=== PATIENT | male | born 1975 | race African-American/Black ===

== ENCOUNTER 2025-03-24 11:38 | Outpatient (CLI) | payer OTHER, SELFPAY ==
--- OUTSIDE RECORDS SUMMARY | 2024-05-06 10:57 | XMS_ITS | Encounter Summary ---
Author Name [facility] [place] Organization [facility] [place] Address [address] [place] [address] Care Team Providers Care Newspaper Inserter Name Role Phone MICKY TRUONG Primary Care Provider Unavailabl e Selected Encounter This section includes the information on record at [place] for the Encounter. Date/Time Encounter Type Encounter Description Reason Pro vider Source May 06, 2024 02:57 PM Outpatient Encounter ADMIN PAT ACTIVTIES (MASNONCT) IHE Encounter Template Text not used by [place] Plan of Treatment: Future Appointments (+ 6 months) and Future Tests (+/- 45 days) The Plan of Treatment section includes future care activities for the patient from all [place] treatmentfacilities. This section includes future appointments and future orders which are active, pending or scheduled. Future Appointments This section includes appointments that were scheduled to occur 6 months from the date of the Encounter, up to a maximum of 20 appointments. The data comes from all [place] treatment facilities. Appointment Date/Time Appointment Type Appointme nt Facility Name Jun 01, 2024 07:30 AM AM[facility]ULATORY - NONE [place] [facility] Jul 06, 2024 12:30 PM AMBULATORY - PSYCHIATRY [facility] Jul 16, 2024 02:00 PM [facility]ATORY - NONE [place] [facility] Jul 28, 2024 03:00 PM [facility]ORY - NONE [place] [facility] Lab Results: +/- 30 days of the encounter This section includes the Chemistry and Hematology Lab Results on record with [place] for the patient. Radiology Reports and Pathology Reports are provided separately, in subsequent sections. Lab Results This section contains the Chemistry/Hematology Results that were resulted 30 days before or 30 daysafter the date of the Encounter. Date/Time Source Result Type Result - Unit Interpretation Reference Range Specimen Type Comment Jun 01, 2024 07:29 AM [facility] EGFR + CREAT DATE SENSITIVE PLASMA Specime n Type: PLASMA Comment: Estimated Glomerular Filtration Rate (eGFR) calculated using the 2020 Chronic Kidney Disease-Epidemiol ogy (CKD-EPI) Collaboration creatinine equation; units of measure are mL/min/1.73 m2. Results are only valid for adults (>=18 years) whose serum creatinine is in a steady state. eGFR calculations are not valid for patients with acute kidney injury and for patients on dialysis. Creatinine-based estimates of kidney function may also be inaccurate in patients with reduced creatinine generation due to decreased muscle mass (e.g., malnutrition, severe hypoalbuminemia, sarcopenia, chronic neuromuscular disease, amputations, severe heart failure or liver disease) and in patients with increased creatinine generation due to increased muscle mass (e.g., muscle builders, anabolic steroids) or increased dietary intake. As drug clearance is proportional to total GFR and not GFR indexed to body surface area (BSA), in individuals with a BSA substantially different than 1.73 m2, drug dosing should be based on the reported eGFR value de-indexed from BSA by multiplying by the individual's BSA and dividing by 1.73. CKD is diagnosed based on abnormalities of kidney structure or function, present for >3 months, with implications for health and disease. CKD is classified and staged based on cause, eGFR and albuminuria (quantified as urine albumin to creatinine ratio). An eGFR >60 mL/min/1.73 m2 in the absence of increased urine albumin excretion or structural abnormalities does not represent CKD. === eGFR CKD Interpretation (mL/min/1.73 m2) stage >=90 G1 Normal 60-89 G2 Mild decrease 45-59 G3A Mild to moderate decrease 30-44 G3B Moderate to severe decrease 15-29 G4 Severe decrease <15 G5 Kidney failure Ordering Provider: NELDA LANIER Report Released Date/Time: Mar 03, 2024 09:58 PM Reporting Lab: [facility] [address] [facility] [id number] Performing Lab: [facility] [address] [facility] [id number] CREATININE 1.36 mg/dL H 0.72-1.25 eGFR (CKD-EPI) 65 Social History: Smoking Status (Most current) and Tobacco Use (All prior to encounter date) This section includes the most current, and the historical, smoking and tobacco- related health factors from the [place] facility where the Encounter took place. Current Smoking Status This section includes the most current smoking, or tobacco-related health factor, from the [place] facility where the Encounter took place. Date/Time Current Smoking Status Comment Facil ity Apr 23, 2004 02:11 PM HF V9 CURRENT NON-SMOKER quit x 1 year [facility] Radiology Reports: +/- 30 days of the encounter Radiology Reports For cases when an order for radiology services may have been completed prior to the date of the Encounter, the report list includes the Radiology Reports that were completed up to 30 days before dateof the Encounter. For cases when an order for radiology services may have been completed after the date of the Encounter, the report list also includes the Radiology Reports that were completed up to30 days after date of the Encounter. The data comes from all [place] treatment facilities. Date/Time Radiology Report Provider Source Jun 01, 2024 07:[address] ABD W & W/O CON T LIVER PROTOCOL: AVINASH HICKMAN [id number] -[id number] [facility] Date: JUN 01, 2024@07:26 Req Phys: NELDA LANIER Pat Loc: LYN PACT GRIMALDO 16-1 (Req'g Loc) Img Loc: CT SCAN Service: Unknown [place] [id number] (Case [id number] COMPLETE) CT ABD W & W/O CONT LIVER PROTOCO(CT Detailed) CPT:44475 Contrast Media : Non-ionic Iodinated Reason for Study: SEE CLINICAL HISTORY Pharmaceutical: IOHEXOL INJ 350MG I/ML 500ML BOTTLE, 80 ml Clinical History: 1. Liver mass by US HISTORY/REASON FOR EXAM: f/u of liver lesion noted on U/s Report Status: Verified Date Reported: JUN 01, 2024 Date Verified: JUN 01, 2024 Darkroom Technician E-Sig: Report: CT ABD W & W/O CONT LIVER PROTOCOL HISTORY: SEE CLINICAL HISTORY COMPARISON: None available TECHNIQUE: CT of the abdomen with multiplanar reformats was performed at the local [place] facility. 120 images were received by the [place] National Teleradiology Program (NTP) for interpretation. RADIATION DOSE (mGy*cm): 1996.1 IV CONTRAST: Omnipaque 350, 100 mL FINDINGS: Lower Chest: Clear lung bases. Liver: There is a 2.3 cm arterial enhancing lesion within the posterior right hepatic lobe (series 301, image 28) that is isodense to the blood pool on the subsequent phases of enhancement. Other similar enhancing lesions are seen in the liver, including a 1.7 cm lesion in the right hepatic dome (series 301, image 16). Gallbladder/Biliary Tract: Normal. Distal Esophagus, Stomach and Duodenum: Normal CT appearance. Spleen: Normal. Pancreas: Normal. Adrenal Glands: Normal. Kidneys: Normal in size. No hydronephrosis or nephrolithiasis. Visualized Bowel: No evidence of bowel obstruction or inflammation. Peritoneum/Retroperitoneum: No ascites, fluid collection or pneumoperitoneum. Vessels: No significant atherosclerotic calcification. Lymph Nodes: Normal in size. Abdominal Wall: Normal. Bones: Unremarkable. Impression: Multiple liver hemangiomas, with the largest measuring up to 2.3 cm. READING PHYSICIAN: Javier Mcdonough -[phone] 06/01/2024 6:09 PDT [facility] National Teleradiology Program [phone] (For Medical Practitioner Use Only) Attention Patients / Veterans: If you have questions or concerns about these test results, please contact your ordering provider or primary care team. Primary Diagnostic Code: NO ALERT REQUIRED Primary Interpreting Staff: OUTSIDE SERVICE RADIOLOGY, Staff Physician / RADIOLOGY,OUTSIDE SERVICE [facility] Encounter Notes: All associated encounter notes This section contains the clinical notes associated to the Encounter. Date/Time Encounter Note(s) Provider Source May 06, 2024 02:57 PM ADMINISTRATIVE NOT E: LOCAL TITLE: CLERICAL/ADMIN NOTE STANDARD TITLE: ADMINISTRATIVE NOTE DATE OF NOTE: MAY 06, 2024@14:57 ENTRY DATE: MAY 06, 2024@14:57:23 AUTHOR: ZEINA OAKES COSIGNER: URGENCY: STATUS: COMPLETED sched ct abd w/ w/o cont 0801 dd pt pid 1015 X-ray/Ct2/Nc 06/01/2024@07:30 Non-count /es/ RACHEL OAKES ADVANCED MSA Signed: 05/06/2024 14:59 RACHEL OAKES [facility]
--- OUTSIDE RECORDS SUMMARY | 2024-06-25 07:50 | XMS_ITS | Encounter Summary ---
Author Name [facility] [place] Organization [facility] [place] [place] Address [address] [place] [address] Care Team Providers Care Hospital Mortician Name Role Phone MICKY TRUONG Primary Care Provider Unavailabl e Selected Encounter This section includes the information on record at [place] for the Encounter. Date/Time Encounter Type Encounter Description Reason Pro vider Source Jun 25, 2024 11:50 AM Outpatient Encounter ADMIN PAT ACTIVTIES (MASNONCT) IHE Encounter Template Text not used by [place] Plan of Treatment: Future Appointments (+ 6 months) and Future Tests (+/- 45 days) The Plan of Treatment section includes future care activities for the patient from all [place] treatmentfacilities. This section includes future appointments and future orders which are active, pending or scheduled. Future Appointments This section includes appointments that were scheduled to occur 6 months from the date of the Encounter, up to a maximum of 20 appointments. The data comes from all [place] treatment facilities. Appointment Date/Time Appointment Type Appointme nt Facility Name Jul 06, 2024 12:30 PM AMBULATORY - PS[facility]CHIATRY [facility] Jul 16, 2024 02:00 PM [facility] - NONE [place] [facility] Jul 28, 2024 03:00 PM AMBULATORY - NONE [facility] Lab Results: +/- 30 days of the encounter This section includes the Chemistry and Hematology Lab Results on record with [place] for the patient. Radiology Reports and Pathology Reports are provided separately, in subsequent sections. Lab Results This section contains the Chemistry/Hematology Results that were resulted 30 days before or 30 daysafter the date of the Encounter. Date/Time Source Result Type Result - Unit Interpretation Reference Range Specimen Type Comment Jun 01, 2024 07:29 AM [facility] [place] [facility] EGFR + CREAT DATE SENSITIVE PLASMA [...] decrease <15 G5 Kidney failure Ordering Provider: STONE,NELDA R Report Released Date/Time: Mar 03, 2024 09:58 PM Reporting Lab: [facility] [address] [facility] [id number] Performing Lab: [facility] [address] [facility] [address] CREATININE 1.36 mg/dL H 0.72-1.25 eGFR (CKD-EPI) 65 Social History: Smoking Status (Most current) and Tobacco Use (All prior to encounter date) This section includes the most current, and the historical, smoking and tobacco- related health factors from the [place] facility where the Encounter took place. Current Smoking Status This section includes the most current smoking, or tobacco-related health factor, from the [place] facility where the Encounter took place. Date/Time Current Smoking Status Comment Facil ity Apr 23, 2004 02:11 PM HF V9 CURRENT NON-SMOKER quit x 1 year [facility] Radiology Reports: +/- 30 days of [...] the Encounter. The data comes from all [place] treatment facilities. Date/Time Radiology Report Provider Source Jun 01, 2024 07:[address] ABD W & W/O CON T LIVER PROTOCOL: AVINASH HICKMAN [id number] -[id number] Ex Date: JUN 01, 2024@07:26 Req Phys: NELDA LANIER Pat Loc: [facility] 16-1 (Req'g Loc) Img Loc: CT SCAN Service: [place] [address] (Case [id number] COMPLETE) CT ABD W & W/O CONT LIVER PROTOCO(CT Detailed) CPT:08383 Contrast Media : Non-ionic Iodinated Reason for Study: SEE CLINICAL HISTORY Pharmaceutical: IOHEXOL INJ 350MG I/ML 500ML BOTTLE, 80 ml Clinical History: 1. Liver mass by US HISTORY/REASON FOR EXAM: f/u of liver lesion noted on U/s Report Status: Verified Date Reported: JUN 01, 2024 Date Verified: JUN 01, 2024 Crts E-Sig: Report: CT ABD W & W/O CONT LIVER PROTOCOL HISTORY: SEE CLINICAL HISTORY COMPARISON: None available TECHNIQUE: CT of the abdomen with multiplanar reformats was performed at the local [place] facility. 120 images were received by the [place] National Teleradiology Program (NTP) for interpretation. RADIATION [...] to 2.3 cm. READING PHYSICIAN: Javier Mcdonough -[phone] 06/01/2024 6:09 PDT [facility] National Teleradiology Program [phone] (For Medical Practitioner Use Only) Attention Patients / Veterans: If you have questions or concerns about these test results, please contact your ordering provider or primary care team. Primary Diagnostic Code: NO ALERT REQUIRED Primary Interpreting Staff: OUTSIDE SERVICE RADIOLOGY, Staff Physician / RADIOLOGY,OUTSIDE SERVICE [facility] Encounter Notes: All associated encounter notes This section contains the clinical notes associated to the Encounter. Date/Time Encounter Note(s) Provider Source Jun 25, 2024 11:50 AM LETTERS: LOCAL TITLE: SPECIALTY CONTACT LETTER STANDARD TITLE: LETTERS DATE OF NOTE: JUN 25, 2024@11:50 ENTRY DATE: JUN 25, 2024@11:50:41 AUTHOR: RAMBO FORD EXP COSIGNER: URGENCY: STATUS: COMPLETED [facility] [address] [place] [address] AVINASH MARCEL HICKMAN [address] [place] [address] JUN 25, 2024 Dear AVINASH HCIKMAN, We have been unable to contact you by telephone to schedule an appointment in our Mental Health clinic. Your health and well-being are important to us. Please call us at or . Select Option #2 and then #3. We look forward to hearing from you soon. Sincerely yours, Mental Health [facility] RAMBO FORD [facility]
--- OUTSIDE RECORDS SUMMARY | 2025-01-26 12:36 | XMS_ITS | Encounter Summary ---
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 Date/Time Encounter Type Encounter Description Reason Provider Source Jan 26, 2025 04:36 PM OFF/OP EST DECEMBER X REQ PHY/QHP TELEPHONE PRIMARY CARE ICD-10-CM M54.50 Low back pain, unspecified MARIA LUZ ALEXANDER Nancy Encounter Template Text not used by [place] Assessments - Encounter Diagnoses This section includes the primary and secondary diagnoses documented for the Encounter. Date/Time Primary/Secondary Diagnosis Diagnosis Name Provider Source Jan 26, 2025 04:36 PM PRIMARY Low back pain, unspecified [facility] Jan 26, 2025 04:36 PM SECONDARY Irritability and anger MARIA [facility]ER [facility] Plan of Treatment: Future Appointments (+ 6 months) and Future Tests (+/- 45 days) The Plan of Treatment section includes future care activities for the patient from all [place] treatmentfacilities. This section includes future appointments and future orders which are active, pending or scheduled. Future Appointments This section includes appointments that were scheduled to occur 6 months from the date of the Encounter, up to a maximum of 20 appointments. The data comes from all [facility]. Appointment Date/Time Appointment Type Appointme nt Facility Name Feb 01, 2025 10:30 AM AMBULATORY - NONE [facility] Feb 28, 2025 08:00 AM AMBULATORY - NONE [facility] Active, Pending, and Scheduled Orders This section includes a listing of several types of active, pending, and scheduled orders, including clinic medications orders, diagnostic test orders, procedure orders and consult orders; where the start date of the order is 45 days before the date of the Encounter or 45 days after the date of theEncounter. The data comes from all [facility]. Test Date/Time Test Type Test Details Facility Name Feb 01, 2025 12:00 AM Laboratory - Chemi stry Order OCCULT BLOOD FIT X1 SCREEN STOOL FECES SP ONCE [facility] Feb 01, 2025 12:28 PM Consult Order COMMUNITY CARE-CHIROPRACTIC Cons Manager Chemical's Choice [facility] Lab Results: +/- 30 days of the encounter This section includes the Chemistry and Hematology Lab Results on record with [place] for the patient. Radiology Reports and Pathology Reports are provided separately, in subsequent sections. Lab Results This section contains the Chemistry/Hematology Results that were resulted 30 days before or 30 daysafter the date of the Encounter. Date/Time Source Result Type Result - Unit Interpretation Reference Range Specimen Type Comment Feb 01, 2025 11:32 AM [facility] HBSAB SERUM Specimen Type: SERUM Comment: FOR HEPATITIS A IGG ANTIBODY Reactive HAV-IgG indicates previous Hepatitis A infection or immunity by vaccination. FOR HBSAB TESTING: Reactive HBsAb denotes immunity by vaccination or recovery from Hepatitis B infection. Individuals found to be reactive for both HBV Core AB total and HBsAb are immune due to prior natural infection. Individuals found to be nonreactive for HBV Core AB total and reactive for HBsAb (anti-HBs) are immune due to prior immunization. Individuals found to be reactive for HBV Core AB total and nonreactive for HBsAb (anti-HBs) are considered to have a current Hepatitis B infection, either acute or chronic. Individuals found to be nonreactive for both HBV Core AB total and HBsAb are at risk for Hepatitis B infection (HBV) and HBV immunization should be considered. Ordering Provider: UCHE COSTELLO Report Released Date/Time: Feb 01, 2025 11:12 AM Reporting Lab: [address] [phone] Performing Lab: [place] [phone] HBSAB REACTIVE Nonreactive Feb 01, 2025 11:32 AM [facility] HEPATITIS A IGG SERUM Specime n Type: SERUM Comment: FOR HEPATITIS A IGG ANTIBODY Reactive HAV-IgG indicates previous Hepatitis A infection or immunity by vaccination. FOR HBSAB TESTING: Reactive HBsAb denotes immunity by vaccination or recovery from Hepatitis B infection. Individuals found to be reactive for both HBV Core AB total and HBsAb are immune due to prior natural infection. Individuals found to be nonreactive for HBV Core AB total and reactive for HBsAb (anti-HBs) are immune due to prior immunization. Individuals found to be reactive for HBV Core AB total and nonreactive for HBsAb (anti-HBs) are considered to have a current Hepatitis B infection, either acute or chronic. Individuals found to be nonreactive for both HBV Core AB total and HBsAb are at risk for Hepatitis B infection (HBV) and HBV immunization should be considered. Ordering Provider: UCHE COSTELLO Report Released Date/Time: Feb 01, 2025 11:12 AM Reporting Lab: [place] [phone] Performing Lab: [place] [phone] HEPATITIS A IGG REACTIVE Nonreactive Feb 01, 2025 11:32 AM [facility] CBC/PLT BLOOD Specimen Type: BLOOD No comment entered. Ordering Provider: UCHE COSTELLO Report Released Date/Time: Feb 01, 2025 11:12 AM Reporting Lab: [address] [phone] Performing Lab: [place] [phone] WBC 5.4 10*3/uL 5.0-10.0 RBC 5.32 10*6/uL 4.6-6.2 HGB 16.3 g/dL 14.0-18.0 HCT 46.6 42.0-52.0 MCV 87.6 fL 80.0-94.0 MCH 30.6 pg 27.0-31.0 MCHC 35.0 g/dL 32.0-36.0 PLT 213 10*3/uL 150-450 MPV 11.0 fL 9.0-13.1 RDW 11.9 11.0-16.0 NRBC 0.0 0.0-0.0 Feb 01, 2025 11:32 AM [facility] PANEL 5 PLASMA Specimen Type: PLASMA Comment: FOR HEPATITIS A IGG ANTIBODY Reactive HAV-IgG indicates previous Hepatitis A infection or immunity by vaccination. FOR HBSAB TESTING: Reactive HBsAb denotes immunity by vaccination or recovery from Hepatitis B infection. Individuals found to be reactive for both HBV Core AB total and HBsAb are immune due to prior natural infection. Individuals found to be nonreactive for HBV Core AB total and reactive for HBsAb (anti-HBs) are immune due to prior immunization. Individuals found to be reactive for HBV Core AB total and nonreactive for HBsAb (anti-HBs) are considered to have a current Hepatitis B infection, either acute or chronic. Individuals found to be nonreactive for both HBV Core AB total and HBsAb are at risk for Hepatitis B infection (HBV) and HBV immunization should be considered. Ordering Provider: UCHE COSTELLO Report Released Date/Time: Feb 01, 2025 11:12 AM Reporting Lab: [address] [phone] Performing Lab: [address] [phone] CREATININE 1.43 mg/dL H 0.72-1.25 UREA NITROGEN 21 mg/dL 9-25 GLUCOSE 94 mg/dL 74-100 SODIUM 136 mmol/L 136-145 POTASSIUM 4.0 mmol/L 3.5-5.1 CHLORIDE 102 mmol/L 98-107 CO2 24 mmol/L 22-29 CALCIUM 9.4 mg/dL 8.4-10.2 TOTAL PROTEIN 7.8 g/dL 6.4-8.3 ALBUMIN 4.6 g/dL 3.5-5.2 TOTAL BILIRUBIN 0.6 mg/dL 0.2-1.2 AST 20 U/L 5-34 ALT 32 U/L 0-55 ANION GAP 10 meq/L 3-19 ALK PHOS 66 U/L 40-150 eGFR (CKD-EPI) 61 Feb 01, 2025 11:32 AM [facility] LIPID PROFILE PLASMA Specimen Type: PLASMA Comment: FOR HEPATITIS A IGG ANTIBODY Reactive HAV-IgG indicates previous Hepatitis A infection or immunity by vaccination. FOR HBSAB TESTING: Reactive HBsAb denotes immunity by vaccination or recovery from Hepatitis B infection. Individuals found to be reactive for both HBV Core AB total and HBsAb are immune due to prior natural infection. Individuals found to be nonreactive for HBV Core AB total and reactive for HBsAb (anti-HBs) are immune due to prior immunization. Individuals found to be reactive for HBV Core AB total and nonreactive for HBsAb (anti-HBs) are considered to have a current Hepatitis B infection, either acute or chronic. Individuals found to be nonreactive for both HBV Core AB total and HBsAb are at risk for Hepatitis B infection (HBV) and HBV immunization should be considered. Ordering Provider: UCHE COSTELLO Report Released Date/Time: Feb 01, 2025 11:12 AM Reporting Lab: [address] [phone] Performing Lab: [address] [phone] CHOLESTEROL 225 mg/dL H 0-199 TRIGLYCERIDE 108 mg/dL 0-149 HDL CHOLESTEROL 61 mg/dL 40-69 DIRECT LDL CHOL. 169 mg/dL H 0-100 Feb 01, 2025 11:32 AM [facility] GLYCOHEMOGLOBIN BLOOD Specimen Type: BLOOD Comment: Prediabetes: 5.7%-6.4% Diabetes: >= 6.5% [facility] guidelines for A1c interpretation: Glycemic control targets are based on Shared Decision Making between clinicians and patients. Criteria used to establish an A1c target recommendation can be found at https://www.[place].gov/qualityandpatientsafety/ and include the use of result accuracy and precision(CV) of the A1c tests clinicians utilize at their own sites of practice. Values obtained from A1C measurements can vary. For typical A1C assays, a reported value of 7.0 could actually be between 6.72 and 7.28 if measured by a reference method. A reported value of 9.0 could actually be between 8.73 and 9.27. Ref: https://ngsp.org/CAPdata.asp. The in-house [employer] D-100 analyzer has a historical CV <= 2%. Contact the laboratory for further performance characteristics of this assay. Ordering Provider: UCHE COSTELLO Report Released Date/Time: Feb 01, 2025 11:12 AM Reporting Lab: [address] [phone] Performing Lab: [address] [phone] GLYCOHEMOGLOBIN 5.1 4.4-5.6 Feb 01, 2025 11:32 AM [facility] PSA S ARABELLA Specimen Type: SERUM No comment entered. Ordering Provider: UCHE COSTELLO Report Released Date/Time: Feb 01, 2025 11:12 AM Reporting Lab: [address] [phone] Performing Lab: [address] [address] PSA 0.622 ng/mL 0-3.999 Feb 01, 2025 11:32 AM [facility] 25-OH VITAMIN D SERUM Specime n Type: SERUM Comment: The National Institutes of Health (NIH) recommendations state: <12 ng/mL - Deficient 20 - 50 ng/mL - Optimal Levels - adequate for most people. >50 ng/mL - Increased risk of hypercalciuria/other health problems - clinical correlation is required. These reference ranges represent clinical decision values rather than population-based reference values. Ordering Provider: UCHE COSTELLO Report Released Date/Time: Feb 01, 2025 11:12 AM Reporting Lab: [address] [phone] Performing Lab: [address] [address] 25-OH VITAMIN D 32.7 ng/mL 20.0-50.0 Feb 01, 2025 11:32 AM [facility] TSH PLASMA Specimen Type: PLASM A Comment: Estimated Glomerular Filtration Rate (eGFR) calculated using the 2020 Chronic Kidney Disease-Epidemiology (CKD-EPI) Collaboration creatinine equation; units of measure [...] or structural abnormalities does not represent CKD. eGFR CKD Interpretation (mL/min/1.73 m2) stage >=90 G1 Normal 60-89 G2 Mild decrease 45-59 G3A Mild to moderate decrease 30-44 G3B Moderate to severe decrease 15-29 G4 Severe decrease <15 G5 Kidney failure Ordering Provider: UCHE COSTELLO Report Released Date/Time: Feb 01, 2025 11:12 AM Reporting Lab: [address] [address] Performing Lab: [address] [address] TSH 0.6714 m[IU]/mL 0.3500-4.9400 Social History: Smoking Status (Most current) and Tobacco Use (All prior to encounter date) This section includes the most current, and the historical, smoking and tobacco- related health factors from the [place] facility where the Encounter took place. Current Smoking Status This section includes the most current smoking, or tobacco-related health factor, from the [place] facility where the Encounter took place. Date/Time Current Smoking Status Cameron aparicio Sep 19, 2023 07:30 AM VA-TOBACCO FORMER USER [facility] Tobacco Use History This section includes a history of the smoking, or tobacco-related health factors, that were collected on or before the date of the Encounter. The data comes from the [place] facility where the Encounter took place. Date/Time Smoking Status/Tobacco Use Comment F andra Sep 19, 2023 07:30 AM VA-TOBACCO QUIT 5 TO < 15 YRS [facility] Oct 18, 2022 08:30 AM VA-TOBACCO FORMER USER [facility] Oct 18, 2022 08:30 AM VA-TOBACCO QUIT 15 YRS OR MORE [facility] Sep 04, 2021 09:47 AM VA-TOBACCO NEVER USED [facility] Oct 04, 2015 12:50 PM V9 LIFETIME NON-USER OF TOBACCO [facility] Aug 18, 2013 12:50 PM V9 QUIT TOBACCO >7 YEARS AGO [facility] Encounter Notes: All associated encounter notes This section contains the clinical notes associated to the Encounter. Date/Time Encounter Note(s) Provider Source Jan 26, 2025 04:36 PM PRIMARY CARE E & M NOTE: LOCAL TITLE: PC CARE MANAGEMENT STANDARD TITLE: PRIMARY CARE E & M NOTE DATE OF NOTE: JAN 26, 2025@16:36 ENTRY DATE: JAN 26, 2025@16:36:20 AUTHOR: MARIA LUZ ALEXANDER EXP COSIGNER: URGENCY: STATUS: COMPLETED two identifiers used per pcp: No Pain pills but tylenol and ibuprofen are appropriate. Can discuss at upcoming appt. He needs to speak to his chiropractor if he wants to continue with same provider. per discussion: stated he has called the chiropractor in [place] multiple times and is told by the office staff, for him to continue to receive chiro visits, this has to come from the [place]. He said he feels like he is getting the run around from [facility] staff. Reminded he came to desktop publishing associate in Sep 2024 asking for more chiro visits, that his certification period had run out in Jul 2024 and [place] chiro would have to send an RFS to continue service. He will go back to [place] or call their office to ask again. He stated that this Chiropractor may not want to fool with him anymore. RN informed if he wants to change CHIRO to let our office know. He knows pcp is not going to order any pain pills, but he can take ibuprofen or APAP for pain control and pcp will discuss this subject further next week clinic appt. time spent 10 minutes /es/ MARIA LUZ ALEXANDER RN, MSN Signed: 01/26/2025 16:44 Receipt Acknowledged By: 01/26/2025 17:09 /es/ Uche Costello DO Primary Care Physician MARIA LUZ ALEXANDER [facility]
--- OUTSIDE RECORDS SUMMARY | 2025-01-31 20:00 | XMS_ITS | Encounter Summary ---
Author Name [facility] [place] [facility] [place] Address [address] [place] [address] Care Team Providers Care Reimbursement Coordinator Name Role Phone MICKY TRUONG Primary Care Provider Unavailabl e Selected Encounter This section includes the information on record at [place] for the Encounter. Date/Time Encounter Type Encounter Description Reason Pro vider Source Feb 01, 2025 12:00 AM Outpatient Encounter EVENT (HISTORICAL) IHE Encounter Template Text not used by [place] Plan of Treatment: Future Appointments (+ 6 months) and Future Tests (+/- 45 days) The Plan of Treatment section includes future care activities for the patient from all [place] treatmentfacilities. This section includes future appointments and future orders which are active, pending or scheduled. Future Appointments This section includes appointments that were scheduled to occur 6 months from the date of the Encounter, up to a maximum of 20 appointments. The data comes from all [place] treatment facilities. Appointment Date/Time Appointment Type Appointme nt Facility Name Feb 28, 2025 08:00 AM AMBULATORY - NONE [facility] Active, Pending, and Scheduled Orders This section includes a listing of several types of active, pending, and scheduled orders, including clinic medications orders, diagnostic test orders, procedure orders and consult orders; where the start date of the order is 45 days before the date of the Encounter or 45 days after the date of theEncounter. The data comes from all [place] treatment facilities. Test Date/Time Test Type Test Details Facility Name Feb 01, 2025 12:00 AM Laboratory - Chemi stry Order OCCULT BLOOD FIT X1 SCREEN STOOL FECES SP ONCE [facility] Feb 01, 2025 12:28 PM Consult Order COMMUNITY CARE-CHIROPRACTIC Cons Mounter [employer]arin[employer] Choice [facility] Lab Results: +/- 30 days of the encounter This section includes the Chemistry and Hematology Lab Results on record with [place] for the patient. Radiology Reports and Pathology Reports are provided separately, in subsequent sections. Lab Results This section contains the Chemistry/Hematology Results that were resulted 30 days before or 30 daysafter the date of the Encounter. Date/Time Source Result Type Result - Unit Interpretation Reference Range Specimen Type Comment Feb 01, 2025 11:32 AM [facility] N HBSAB SERUM Specimen Type: SERUM Comment: FOR [...] HBV immunization should be considered. Ordering Provider: MICKY TRUONG Report Released Date/Time: Feb 01, 2025 11:12 AM Reporting Lab: [address] [phone] Performing Lab: [address] [address] HBSAB REACTIVE Nonreactive Feb 01, 2025 11:32 AM [facility] HEPATITIS A IGG SERUM Specime n [...] HBV immunization should be considered. Ordering Provider: MICKY TRUONG Report Released Date/Time: Feb 01, 2025 11:12 AM Reporting Lab: [place] [phone] Performing Lab: [place] [phone] HEPATITIS A IGG REACTIVE Nonreactive Feb 01, 2025 11:32 AM [facility] CBC/PLT BLOOD Specimen Type: BLOOD No comment entered. Ordering Provider: MICKY TRUONG Report Released Date/Time: Feb 01, 2025 11:12 AM Reporting Lab: [address] [address] Performing Lab: [address] [address] WBC 5.4 10*3/uL 5.0-10.0 RBC 5.32 10*6/uL 4.6-6.2 HGB 16.3 g/dL 14.0-18.0 HCT 46.6 42.0-52.0 MCV 87.6 fL 80.0-94.0 MCH 30.6 pg 27.0-31.0 MCHC 35.0 g/dL 32.0-36.0 PLT 213 10*3/uL 150-450 MPV 11.0 fL 9.0-13.1 RDW 11.9 11.0-16.0 NRBC 0.0 0.0-0.0 Feb 01, 2025 11:32 AM [facility] PANEL 5 PLASMA Specimen Type: PLASMA [...] HBV immunization should be considered. Ordering Provider: MICKY TRUONG Report Released Date/Time: Feb 01, 2025 11:12 AM Reporting Lab: [address] [phone] Performing Lab: [address] [address] CREATININE 1.43 mg/dL H 0.72-1.25 UREA NITROGEN [...] (CKD-EPI) 61 Feb 01, 2025 11:32 AM [facility] LIPID PROFILE PLASMA Specimen Type: PLASMA [...] HBV immunization should be considered. Ordering Provider: MICKY TRUONG Report Released Date/Time: Feb 01, 2025 11:12 AM Reporting Lab: [address] [address] Performing Lab: [address] [address] CHOLESTEROL 225 mg/dL H 0-199 TRIGLYCERIDE 108 mg/dL 0-149 HDL CHOLESTEROL 61 mg/dL 40-69 DIRECT LDL CHOL. 169 mg/dL H 0-100 Feb 01, 2025 11:32 AM [facility] GLYCOHEMOGLOBIN BLOOD Specimen Type: BLOOD Comment: Prediabetes: 5.7%-6.4% Diabetes: >= 6.5% [facility] guidelines for A1c interpretation: Glycemic control targets are based on Shared Decision Making between clinicians and patients. Criteria used to establish an A1c target recommendation can be found at https://www.[place].gov/qualityandpatientsafety/ and include the use of result accuracy [...] 8.73 and 9.27. Ref: https://ngsp.org/CAPdata.asp. The in-house [employer]-Pure[employer] D-100 analyzer has a historical CV <= 2%. Contact the laboratory for further performance characteristics of this assay. Ordering Provider: MICKY TRUONG Report Released Date/Time: Feb 01, 2025 11:12 AM Reporting Lab: [address] [address] Performing Lab: [address] [address] GLYCOHEMOGLOBIN 5.1 4.4-5.6 Feb 01, 2025 11:32 AM [facility] PSA S ARABELLA Specimen Type: SERUM No comment entered. Ordering Provider: MICKY TRUONG Report Released Date/Time: Feb 01, 2025 11:12 AM Reporting Lab: [place] [address] [facility] [address] Performing Lab: [facility] [address] [place] [phone] PSA 0.622 ng/mL 0-3.999 Feb 01, 2025 11:32 AM [facility] TSH [facility]AS[facility] Specimen Type: PLASM A [...] decrease <15 G5 Kidney failure Ordering Provider: MICKY TRUONG Report Released Date/Time: Feb 01, 2025 11:12 AM Reporting Lab: [address] [address] Performing Lab: [address] [address] TSH 0.6714 m[IU]/mL 0.3500-4.9400 Feb 01, 2025 11:32 AM [facility] 25-OH VITAMIN D SERUM Specime n Type: SERUM Comment: The National Institutes of Health (NIH) recommendations state: <12 ng/mL - Deficient 20 - 50 ng/mL - Optimal Levels - adequate for most people. >50 ng/mL - Increased risk of hypercalciuria/other health problems - clinical correlation is required. These reference ranges represent clinical decision values rather than population-based reference values. Ordering Provider: MICKY TRUONG Report Released Date/Time: Feb 01, 2025 11:12 AM Reporting Lab: [address] [phone] Performing Lab: [address] [address] 25-OH VITAMIN D 32.7 ng/mL 20.0-50.0 Vital Signs: All taken on the encounter date This section contains inpatient and outpatient Vital Signs collected on the date of the Encounter. Date/Time Temperature Pulse Blood Pressure Respiratory Rate SP02 Pain Height Weight Body Mass Index Source Feb 01, 2025 03:40 PM 97.6 F 70 /min 118/72 mm[Hg] 98 % 7 219 lb 30 [place] [facility] Feb 01, 2025 11:14 AM 70 /min 118/72 mm[Hg] 12 /min [place] [facility] Social History: Smoking Status (Most current) and Tobacco Use (All prior to encounter date) This section includes the most current, and the historical, smoking and tobacco- related health factors from the [place] facility where the Encounter took place. Current Smoking Status This section includes the most current smoking, or tobacco-related health factor, from the [place] facility where the Encounter took place. Date/Time Current Smoking Status Comment Spencer aparicio Feb 01, 2025 10:30 AM VA-TOBACCO USE FOR TOSHA CIGARETTES [facility] Tobacco Use History This section includes a history of the smoking, or tobacco-related health factors, that were collected on or before the date of the Encounter. The data comes from the [place] facility where the Encounter took place. Date/Time Smoking Status/Tobacco Use Comment F acility Feb 01, 2025 10:30 AM VA-TOBACCO USE FOR TOSHA CIGARETTES [facility] Sep 19, 2023 07:30 AM VA-TOBACCO FORMER USER [facility] Sep 19, 2023 07:30 AM VA-TOBACCO QUIT 5 TO < 15 YRS [facility] Oct 18, 2022 08:30 AM VA-TOBACCO FORMER USER [facility] Oct 18, 2022 08:30 AM VA-TOBACCO QUIT 15 YRS OR MORE [facility] Sep 04, 2021 09:47 AM VA-TOBACCO NEVER USED [facility] Oct 04, 2015 12:50 PM V9 LIFETIME NON-USER OF TOBACCO [facility] Aug 18, 2013 12:50 PM V9 QUIT TOBACCO >7 YEARS AGO [facility]
--- OUTSIDE RECORDS SUMMARY | 2025-02-01 06:16 | XMS_ITS | Encounter Summary ---
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 Date/Time Encounter Type Encounter Description Reason Pro vider Source Feb 01, 2025 10:16 AM Outpatient Encounter ADMIN PAT ACTIVTIES (MASNONCT) [facility] Encounter Template Text not used by ID Plan of Treatment: Future Appointments (+ 6 months) and Future Tests (+/- 45 days) The Plan of Treatment section includes future care activities for the patient from all ID treatmentfacilities. This section includes future appointments and future orders which are active, pending or scheduled. Future Appointments This section includes appointments that were scheduled to occur 6 months from the date of the Encounter, up to a maximum of 20 appointments. The data comes from all ID treatment facilities. Appointment Date/Time Appointment Type Appointme nt Facility Name Feb 28, 2025 08:00 AM AMBULATORY - NONE DAISHA Buenrost[facility] Active, Pending, and Scheduled Orders This section includes a listing of several types of active, pending, and scheduled orders, including clinic medications orders, diagnostic test orders, procedure orders and consult orders; where the start date of the order is 45 days before the date of the Encounter or 45 days after the date of theEncounter. The data comes from all ID treatment facilities. Test Date/Time Test Type Test Details Facility Name Feb 01, 2025 12:00 AM Laboratory - Chemi stry Order OCCULT BLOOD FIT X1 SCREEN STOOL FECES SP ONCE [facility] Feb 01, 2025 12:28 PM Consult Order [facility]OPRA[facility]IC Cons Mold [facility] Choice [facility] Lab Results: +/- 30 days of the encounter This section includes the Chemistry and Hematology Lab Results on record with ID for the patient. Radiology Reports and Pathology Reports are provided separately, in subsequent sections. Lab Results This section contains the Chemistry/Hematology Results that were resulted 30 days before or 30 daysafter the date of the Encounter. Date/Time Source Result Type Result - Unit Interpretation Reference Range Specimen Type Comment Feb 01, 2025 11:32 AM [facility] N HBSAB SERUM Specimen Type: SERUM Comment: [...] Feb 01, 2025 11:12 AM Reporting Lab: [address] [phone] Performing Lab: [address] [address] HBSAB REACTIVE Nonreactive Feb 01, 2025 11:32 AM [facility] HEPATITIS A IGG SERUM Specime [...] Feb 01, 2025 11:12 AM Reporting Lab: [address] [phone] Performing Lab: [address] [address] HEPATITIS A IGG REACTIVE Nonreactive Feb 01, 2025 11:32 AM [facility] CBC/PLT BLOOD Specimen Type: BLOOD No comment entered. Ordering Provider: MICKY TRUONG Report Released Date/Time: Feb 01, 2025 11:12 AM Reporting Lab: [address] [address] Performing Lab: [address] [address] WBC 5.4 10*3/uL 5.0-10.0 RBC 5.32 10*6/uL 4.6-6.2 HGB 16.3 g/dL 14.0-18.0 HCT 46.6 42.0-52.0 MCV 87.6 fL 80.0-94.0 MCH 30.6 pg 27.0-31.0 MCHC 35.0 g/dL 32.0-36.0 PLT 213 10*3/uL 150-450 MPV 11.0 fL 9.0-13.1 RDW 11.9 11.0-16.0 NRBC 0.0 0.0-0.0 Feb 01, 2025 11:32 AM [facility] PANEL 5 PLASMA Specimen Type: [...] Feb 01, 2025 11:12 AM Reporting Lab: [address] [phone] Performing Lab: [address] [address] CREATININE 1.43 mg/dL H 0.72-1.25 UREA NITROGEN [...] (CKD-EPI) 61 Feb 01, 2025 11:32 AM [facility] LIPID PROFILE PLASMA Specimen Type: [...] Feb 01, 2025 11:12 AM Reporting Lab: [address] [address] Performing Lab: [address] [address] CHOLESTEROL 225 mg/dL H 0-199 TRIGLYCERIDE 108 mg/dL 0-149 HDL CHOLESTEROL 61 mg/dL 40-69 DIRECT LDL CHOL. 169 mg/dL H 0-100 Feb 01, 2025 11:32 AM [facility] GLYCOHEMOGLOBIN BLOOD Specimen Type: BLOOD Comment: Prediabetes: 5.7%-6.4% Diabetes: >= 6.5% [facility] guidelines for A1c interpretation: Glycemic control targets [...] 8.73 and 9.27. Ref: https://ngsp.org/CAPdata.asp. The in-house [employer] D-100 analyzer has a historical CV <= 2%. Contact the laboratory for further performance characteristics of this assay. Ordering Provider: MICKY TRUONG Report Released Date/Time: Feb 01, 2025 11:12 AM Reporting Lab: [address] [address] Performing Lab: [address] [address] GLYCOHEMOGLOBIN 5.1 4.4-5.6 Feb 01, 2025 11:32 AM [facility] PSA S ARABELLA Specimen Type: SERUM No comment entered. Ordering Provider: MICKY TRUONG Report Released Date/Time: Feb 01, 2025 11:12 AM Reporting Lab: [address] [address] Performing Lab: [address] [address] PSA 0.622 ng/mL 0-3.999 Feb 01, 2025 11:32 [facility] 25-OH VITAMIN D SERUM Specime n [...] Feb 01, 2025 11:12 AM Reporting Lab: [address] [address] Performing Lab: [address] [address] 25-OH VITAMIN D 32.7 ng/mL 20.0-50.0 Feb 01, 2025 11:32 AM [facility] TSH PLASMA Specimen Type: PLASM A [...] Feb 01, 2025 11:12 AM Reporting Lab: [address] [phone] Performing Lab: [address] [address] TSH 0.6714 m[IU]/mL 0.3500-4.9400 Vital Signs: All taken on the encounter date This section contains inpatient and outpatient Vital Signs collected on the date of the Encounter. Date/Time Temperature Pulse Blood Pressure Respiratory Rate SP02 Pain Height Weight Body Mass Index Source Feb 01, 2025 03:40 PM 97.6 F 70 /min 118/72 mm[Hg] 98 % 7 219 lb 30 [place] [facility] Feb 01, 2025 11:14 AM 70 /min 118/72 mm[Hg] 12 /min [place] [facility] Social History: Smoking Status (Most current) and Tobacco Use (All prior to encounter date) This section includes the most current, and the historical, smoking and tobacco- related health factors from the ID facility where the Encounter took place. Current Smoking Status This section includes the most current smoking, or tobacco-related health factor, from the ID facility where the Encounter took place. Date/Time Current Smoking Status Cameron aparicio Feb 01, 2025 10:30 AM VA-TOBACCO USE FOR TOSHA CIGARETTES [facility] Tobacco Use History This section includes a history of the smoking, or tobacco-related health factors, that were collected on or before the date of the Encounter. The data comes from the ID facility where the Encounter took place. Date/Time Smoking Status/Tobacco Use Comment F acility Feb 01, 2025 10:30 AM VA-TOBACCO USE FOR TOSHA CIGARETTES [facility] Sep 19, 2023 07:30 AM VA-TOBACCO FORMER USER [facility] Sep 19, 2023 07:30 AM VA-TOBACCO QUIT 5 TO < 15 YRS [facility] Oct 18, 2022 08:30 AM VA-TOBACCO FORMER USER [facility] Oct 18, 2022 08:30 AM VA-TOBACCO QUIT 15 YRS OR MORE [facility] Sep 04, 2021 09:47 AM VA-TOBACCO NEVER USED [facility] Oct 04, 2015 12:50 PM V9 LIFETIME NON-USER OF TOBACCO [facility] Aug 18, 2013 12:50 PM V9 QUIT TOBACCO >7 YEARS AGO [facility] Encounter Notes: All associated encounter notes This section contains the clinical notes associated to the Encounter. Date/Time Encounter Note(s) Provider Source Feb 01, 2025 10:16 AM NONVA NOTE: LOCAL TITLE: COMMUNITY CARE-REQUEST FOR SERVICE NOTE STANDARD TITLE: NONVA NOTE DATE OF NOTE: FEB 01, 2025@10:16 ENTRY DATE: FEB 01, 2025@10:16:05 AUTHOR: HAYDEN HOGAN COSIGNER: URGENCY: STATUS: COMPLETED [facility] for Services (RFS) [facility] Community Care Consult: [facility]-CHIROPRACT[facility] Consult No: [id number] Date scanned: 02/01/2025 A Request for Service (RFS) form [id number] has been received which includes the following: Care Requested:CHIRO- CONT CARE ICD-10 Dx code: M54.41 Date [facility] received request: 01/31/2025 Date service required: 01/31/2025 Requesting Community Provider Information: Name of Ordering Provider: PATRICIA LOPEZ Office:[facility] Address, [facility], State: [address] [place] [address] /judah/ HAYDEN HOAGN AMSA Signed: 02/01/2025 10:17 Receipt Acknowledged By: 02/01/2025 15:08 /judah/ LADAN NUR NURSE PRACTITIONER for HAYDEN DUMONT-MICHELLED [facility]
--- OUTSIDE RECORDS SUMMARY | 2025-02-01 06:30 | XMS_ITS | Encounter Summary ---
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 Date/Time Encounter Type Encounter Description Reason Provider Source Feb 01, 2025 10:30 AM OFFICE O/P EST MOD 30 MIN PRIMARY CARE/MEDICINE ICD-10-CM M54.50 Low back pain, unspecified UCHE COSTELLO Nancy Encounter Template Text not used by [place] Assessments - Encounter Diagnoses This section includes the primary and secondary diagnoses documented for the Encounter. Date/Time Primary/Secondary Diagnosis Diagnosis Name Provider Source Feb 25, 2025 12:14 PM PRIMARY Low back pain, unspecified [facility] Feb 25, 2025 12:14 PM SECONDARY Pain in right knee UCHE COSTELLO [facility] Plan of Treatment: Future Appointments (+ 6 months) and Future Tests (+/- 45 days) The Plan of Treatment section includes future care activities for the patient from all [place] treatmentfacilities. This section includes future appointments and future orders which are active, pending or scheduled. Future Appointments This section includes appointments that were scheduled to occur 6 months from the date of the Encounter, up to a maximum of 20 appointments. The data comes from all [facility]. Appointment Date/Time Appointment Type Appointme nt Facility Name Feb 28, 2025 08:00 AM AMBULATORY - NONE PSYCHIATRIC Active, Pending, and Scheduled Orders This section includes a listing of several types of active, pending, and scheduled orders, including clinic medications orders, diagnostic test orders, procedure orders and consult orders; where the start date of the order is 45 days before the date of the Encounter or 45 days after the date of theEncounter. The data comes from all [facility]. Test Date/Time Test Type Test Details Facility Name Feb 01, 2025 12:00 AM Laboratory - Chemi stry Order OCCULT BLOOD FIT X1 SCREEN STOOL FECES SP ONCE [facility] Feb 01, 2025 12:28 PM Consult Order COMMUNITY CARE-CHIROPRACTIC Cons Creping Machine Operator's Choice [facility] Lab Results: +/- 30 days of the encounter This section includes the Chemistry and Hematology Lab Results on record with [place] for the patient. Radiology Reports and Pathology Reports are provided separately, in subsequent sections. Lab Results This section contains the Chemistry/Hematology Results that were resulted 30 days before or 30 daysafter the date of the Encounter. Date/Time Source Result Type Result - Unit Interpretation Reference Range Specimen Type Comment Feb 01, 2025 11:32 AM [facility] N HBSAB SERUM Specimen Type: SERUM Comment: [...] Feb 01, 2025 11:12 AM Reporting Lab: [facility] [address] [phone] Performing Lab: [place] [id number] HBSAB REACTIVE Nonreactive Feb 01, 2025 11:32 AM [facility] HEPATITIS A IGG SERUM Specime n [...] Feb 01, 2025 11:12 AM Reporting Lab: [place] [id number] Performing Lab: [place] [id number] HEPATITIS A IGG REACTIVE Nonreactive Feb 01, 2025 11:32 AM [facility] CBC/PLT BLOOD Specimen Type: BLOOD No comment entered. Ordering Provider: UCHE COSTELLO Report Released Date/Time: Feb 01, 2025 11:12 AM Reporting Lab: [place] [id number] Performing Lab: [place] [id number] WBC 5.4 10*3/uL 5.0-10.0 RBC 5.32 10*6/uL 4.6-6.2 HGB 16.3 g/dL 14.0-18.0 HCT 46.6 42.0-52.0 MCV 87.6 fL 80.0-94.0 MCH 30.6 pg 27.0-31.0 MCHC 35.0 g/dL 32.0-36.0 PLT 213 10*3/uL 150-450 MPV 11.0 fL 9.0-13.1 RDW 11.9 11.0-16.0 NRBC 0.0 0.0-0.0 Feb 01, 2025 11:32 AM [facility] PANEL 5 PLASMA Specimen Type: PLASMA [...] Feb 01, 2025 11:12 AM Reporting Lab: [address] [phone] Performing Lab: [address] [phone] CREATININE 1.43 mg/dL H 0.72-1.25 UREA NITROGEN [...] (CKD-EPI) 61 Feb 01, 2025 11:32 AM [facility] LIPID PROFILE PLASMA Specimen Type: PLASMA [...] Feb 01, 2025 11:12 AM Reporting Lab: [address] [phone] Performing Lab: [address] [phone] CHOLESTEROL 225 mg/dL H 0-199 TRIGLYCERIDE 108 mg/dL 0-149 HDL CHOLESTEROL 61 mg/dL 40-69 DIRECT LDL CHOL. 169 mg/dL H 0-100 Feb 01, 2025 11:32 AM [facility] GLYCOHEMOGLOBIN BLOOD Specimen Type: BLOOD Comment: Prediabetes: 5.7%-6.4% Diabetes: >= 6.5% [facility] guidelines for A1c interpretation: Glycemic control targets are based on Shared Decision Making between clinicians and patients. Criteria used to establish an A1c target recommendation can be found at https://www.[place].gov/qualityandpatientsafety/ and include the use of result accuracy [...] 8.73 and 9.27. Ref: https://ngsp.org/CAPdata.asp. The in-house [employer]-MESI D-100 analyzer has a historical CV <= 2%. Contact the laboratory for further performance characteristics of this assay. Ordering Provider: UCHE COSTELLO Report Released Date/Time: Feb 01, 2025 11:12 AM Reporting Lab: [address] [phone] Performing Lab: [address] [address] GLYCOHEMOGLOBIN 5.1 4.4-5.6 Feb 01, 2025 11:32 AM [facility] PSA S ARABELLA Specimen Type: SERUM No comment entered. Ordering Provider: UCHE COSTELLO Report Released Date/Time: Feb 01, 2025 11:12 AM Reporting Lab: [address] [phone] Performing Lab: [address] [address] PSA 0.622 ng/mL 0-3.999 Feb 01, 2025 11:32 AM [facility] PLASMA Specimen Type: PLASM A Comment: [...] Feb 01, 2025 11:12 AM Reporting Lab: [address] [phone] Performing Lab: [address] [address] TSH 0.6714 m[IU]/mL 0.3500-4.9400 Feb 01, 2025 11:32 AM [facility] 25-OH VITAMIN D SERUM Specime n [...] Feb 01, 2025 11:12 AM Reporting Lab: [address] [phone] Performing Lab: [address] [phone] 25-OH VITAMIN D 32.7 ng/mL 20.0-50.0 Vital Signs: All taken on the encounter date This section contains inpatient and outpatient Vital Signs collected on the date of the Encounter. Date/Time Temperature Pulse Blood Pressure Respiratory Rate SP02 Pain Height Weight Body Mass Index Source Feb 01, 2025 03:40 PM 97.6 F 70 /min 118/72 mm[Hg] 98 % 7 219 lb 30 [facility] [facility] Feb 01, 2025 11:14 AM 70 /min 118/72 mm[Hg] 12 /min [facility] Social History: Smoking Status (Most current) and Tobacco Use (All prior to encounter date) This section includes the most current, and the historical, smoking and tobacco- related health factors from the [facility] where the Encounter took place. Current Smoking Status This section includes the most current smoking, or tobacco-related health factor, from the [facility] where the Encounter took place. Date/Time Current Smoking Status Comment Spencer aparicio Feb 01, 2025 10:30 AM VA-TOBACCO USE FOR TOSHA CIGARETTES [facility] Tobacco Use History This section includes a history of the smoking, or tobacco-related health factors, that were collected on or before the date of the Encounter. The data comes from the [place] facility where the Encounter took place. Date/Time Smoking Status/Tobacco Use Comment Aziza andra Feb 01, 2025 10:30 AM VA-TOBACCO USE FOR TOSHA CIGARETTES [facility] Sep 19, 2023 07:30 AM VA-TOBACCO FORMER USER [facility] Sep 19, 2023 07:30 AM VA-TOBACCO QUIT 5 TO < 15 YRS [facility] Oct 18, 2022 08:30 AM VA-TOBACCO FORMER USER [facility] Oct 18, 2022 08:30 AM VA-TOBACCO QUIT 15 YRS OR MORE [facility] Sep 04, 2021 09:47 AM VA-TOBACCO NEVER USED [facility] Oct 04, 2015 12:50 PM V9 LIFETIME NON-USER OF TOBACCO [facility] Aug 18, 2013 12:50 PM V9 QUIT TOBACCO >7 YEARS AGO [facility] Encounter Notes: All associated encounter notes This section contains the clinical notes associated to the Encounter. 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 Patient advised to carry a list of current medications and any allergies with them in the event of emergency situations. Yes - /Caregiver verbalized understanding of topics discussed and education provided COVID-19 Immunization: Refused Moderna Monovalent COVID-19 vaccine Immunization: COVID-19 (MODERNA), MRNA, LNP-S, PF, 50 MCG/0.5 ML (AGES 12+ YEARS) Refusal Reason: PATIENT DECISION Patient refuses all immunization(s) in the COVID-19 group Date Documented: 02/01/25 15:48 Depression Screening: Perform PHQ-2 A PHQ-2 screen was performed. The score was 2 which is a negative screen for depression. Over the past two weeks, how often have you been bothered by the following problems? 1. Little interest or pleasure in doing things Several days 2. Feeling down, depressed, or hopeless Several days Homelessness/Food Insecurity Screen: In the past 2 months, have you been living in stable housing that you own, rent, or stay in as part of a household? Yes - Living in stable housing. Are you worried or concerned that in the next 2 months you may NOT have stable housing that you own, rent, or stay in as part of a household? No - Not worried about housing near future The [facility] reports the following: Within the past 12 months, you worried whether your food would run out before you got money to buy more. Never true Within the past 12 months, the food you bought just didn't last and you didn't have money to get more. Never true Influenza Immunization: No influenza vaccination was received during the recent influenza season. Learning Readiness Assessment: Preferred language for discussing health care Slovenian NEW ASSESSMENT LEARNING BARRIERS Visual Barrier Comment: Glasses READING LIMITATIONS No reading limitations PREFERRED METHODS FOR LEARNING Written/Printed Material Demonstration (Audio/Visual) INTERESTED IN LEARNING (MOTIVATED) No PERSON BEING EDUCATED TODAY Patient Education was provided on the following topics RESPONSE Verbalizes Successfully Tobacco Use Screening: The patient is a former cigarette smoker. The patient has never used other types of tobacco. Alcohol Use Screen (AUDIT-C): Alcohol Screen: SCREEN FOR ALCOHOL (AUDIT-C) An alcohol screening test (AUDIT-C) was negative (score=4). 1. How often did you have a drink containing alcohol in the past year? Consider a drink to be a 12 ounce can or bottle of regular beer, 8 ounces of malt liquor, a 5 ounce glass of table wine, or a 1.5 ounce shot of liquor (like scotch, gin, or vodka). Four or more times a week 2. How many drinks containing alcohol did you have on a typical day when you were drinking in the past year? One or two drinks 3. How often did you have six or more drinks on one occasion in the past year? Never Suicide Screen: C-SSRS Screening [place] Suicide Severity Rating Scale (C-SSRS) screener 1. Over the past month, have you wished you were or wished you could go to sleep and not wake up? No 2. Over the past month, have you had any actual thoughts of killing yourself? No 3. Over the past month, have you been thinking about how you might do this? Response not required due to responses to other questions. 4. Over the past month, have you had these thoughts and had some intention of acting on them? Response not required due to responses to other questions. 5. Over the past month, have you started to work out or worked out the details of how to kill yourself? Response not required due to responses to other questions. 6. If yes, at any time in the past month did you intend to carry out this plan? Response not required due to responses to other questions. 7. In your lifetime, have you ever done anything, started to do anything, or prepared to do anything to end your life (for example, collected pills, obtained a gun, gave away valuables, went to the roof but didn't jump)? No 8. If YES, was this within the past 3 months? Response not required due to responses to other questions. 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 Has asked chiropractor for RFS but seems like [facility] not [facility] to [facility]. TENS unit doesn't help. He is agreeable for RS 4i+ trial before we order one for him. APAP hasn't helped. thinking about using cannabis Has spasms in back. Drinking a lot of water but still has a lot of spasms. right knee pain - cold wet weather worsens but current heat is helpful (90+ F), no swelling, instability, redness ROS: As per HPI General: negative HEENT: negative Resp: negative CV: negative GI: negative : negative MSK: low back pain, right knee pain Neuro: negative Skin: negative Psych: negative Heme/Lymph: negative Endocrine: negative Active problems - Computerized Problem List is the source for the followin. Exposure to potentially hazardous substance ([facility] [id number]) 2. Hypercholesterolemia ([facility] [id number]) 3. Obesity ([facility] [id number]) 4. Fatty liver 5. Irritability and anger 6. Low back pain 7. Bilateral stiffness of knee joints 8. 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 SpO2: PULSE OXIMETRY - NONE FOUND GENERAL: WDWN, appears stated age, NAD HEENT: NCAT, PE, EOMI, mucous membranes moist NECK: supple, trachea midline, no thyromegaly LYMPH: no cervical adenopathy, no supraclavicular adenopathy HEART: regular rate and rhythm, no murmur, no pedal edema LUNGS: unlabored, clear to auscultation bilaterally, no adventitious sounds ABDOMEN: BS +, soft, nontender, no masses appreciated, no HSM MSK: Normal gait and station - no assistive device used. increased LBP with lumbar flexion and extension, neg slr bl NEURO: CN 2-12 grossly intact, no focal deficits, speech normal rate and rhythm, SILT. Full bl A/PROM knees without effusion, mild bl crepitus, no ligamentous laxity EXTREMITIES: no cyanosis or clubbing SKIN: warm and dry without rashes, lesions or bruising. PSYCH: mood fine , affect congruent to mood, insight intact, judgment good Recent radiology results No data available Recent labwork No data available A/P: low back pain - ongoing since 2021, may continue chiro, HEP encouraged, RS 4i+ trial before we order one for him. methocarbamol, diclofenac right knee pain - stable, NSAID prn, diclofenac 75 mg BID prn Cancer screening: Colon: FIT Lung: Prostate: Follow up appointment: 11 months or sooner prn I spent 30 minutes today performing medically necessary history and exam, managing the patients conditions, documenting clinical info in health record, including but not limited to: Preparing to see pt. (ex.: review of tests, last visit notes) Obtain/review separately obtained history Ordering tests, procedures, medications Refer and/or communicate with other providers regarding patient Independently interpreting results & communicating results to patient/caregiver Care coordination (not separately reported) Counseling and education pt/family/caregiver The Outpatient Essential Medication List for review (EMLR) was reviewed with the patient/caregiver and the patient was provided or refused an updated reconciled medication list. Discrepancies were corrected or sent to the ordering provider to correct. Review of medications include: Patient allergies (Remote and Local) and active and pending prescriptions dispensed from this [facility] (local) and dispensed from another [place] or [facility] facility (remote and pending) as well as local inpatient orders (pending and active) and clinic medications (IMOs), locally documented non-VA medications and local prescriptions that have or been discontinued in the past 90 days. With the exception of Allergies, if a category is not listed below, it means there were no relevant medications for the patient. ( ) Ramona/caregiver refused a copy of EMLR ( x ) Ramona/caregiver refused a copy of EMLR and stated they will maintain their own list ( ) Ramona/caregiver was handed a copy of EMLR at todays visit ( ) Ramona/caregiver requests copy of EMLR to be mailed to them at their address (verify address on file) ( ) Ramona/caregiver requests copy of EMLR to be sent to them via Secure Messaging (must have [employer] account) Alcohol Use Screen (AUDIT-C): Alcohol Screen: SCREEN FOR ALCOHOL (AUDIT-C) An alcohol screening test (AUDIT-C) was negative (score=4). 1. How often did you have a drink containing alcohol in the past year? Consider a drink to be a 12 ounce can or bottle of regular beer, 8 ounces of malt liquor, a 5 ounce glass of table wine, or a 1.5 ounce shot of liquor (like scotch, gin, or vodka). Two to three times per week 2. How many drinks containing alcohol did you have on a typical day when you were drinking in the past year? One or two drinks 3. How often did you have six or more drinks on one occasion in the past year? Less than monthly Hepatitis B Serology/Immunization: see orders Hepatitis A Serology/Immunization: Hepatitis A Serology: Order Serology (anti-HAV IgG Only): See orders for actions taken Sexual Orientation: The patient thinks of their sexual orientation as: Straight or Heterosexual Avg Risk Colorectal Cancer Screen: AVERAGE RISK colorectal cancer screening is due based on information available to this clinical reminder FOBT/FIT (Fecal Immunochemical Testing) has been ordered. See order tab for details. /es/ Uche Costello DO Primary Care Physician Signed: 02/14/2025 07:23 UCHE COSTELLO [facility]
--- OUTSIDE RECORDS SUMMARY | 2025-02-01 06:30 | XMS_ITS | Encounter Summary ---
Author Name [facility] Address [address] [place] [address] Care Team Providers Care Customer Relations Advisor Name Role Phone MICKY TRUONG Primary Care Provider Unavailabl e Selected Encounter This section includes the information on record at OR for the Encounter. Date/Time Encounter Type Encounter Description Reason Pro vider Source Feb 01, 2025 10:30 AM Outpatient Encounter EVENT (HISTORICAL) IHE Encounter Template Text not used by OR Plan of Treatment: Future Appointments (+ 6 months) and Future Tests (+/- 45 days) The Plan of Treatment section includes future care activities for the patient from all OR treatmentfacilities. This section includes future appointments and future orders which are active, pending or scheduled. Future Appointments This section includes appointments that were scheduled to occur 6 months from the date of the Encounter, up to a maximum of 20 appointments. The data comes from all [place] treatment facilities. Appointment Date/Time Appointment Type Appointme nt Facility Name Feb 28, 2025 08:00 AM [facility] Active, Pending, and Scheduled Orders This section includes a listing of several types of active, pending, and scheduled orders, including clinic medications orders, diagnostic test orders, procedure orders and consult orders; where the start date of the order is 45 days before the date of the Encounter or 45 days after the date of theEncounter. The data comes from all [place] treatment facilities. Test Date/Time Test Type Test Details Facility Name Feb 01, 2025 12:00 AM Laboratory - Chemi stry Order OCCULT BLOOD FIT X1 SCREEN STOOL FECES SP ONCE [facility] Feb 01, 2025 12:28 PM Consult Order COMMUNITY CARE-CHIROPRACTIC Cons Geomorphologist's Choice [facility] Lab Results: +/- 30 days of the encounter This section includes the Chemistry and Hematology Lab Results on record with OR for the patient. Radiology Reports and Pathology Reports are provided separately, in subsequent sections. Lab Results This section contains the Chemistry/Hematology Results that were resulted 30 days before or 30 daysafter the date of the Encounter. Date/Time Source Result Type Result - Unit Interpretation Reference Range Specimen Type Comment Feb 01, 2025 11:32 AM [facility] N HBSAB SERUM Specimen Type: SERUM [...] Feb 01, 2025 11:12 AM Reporting Lab: [address] [address] Performing Lab: [address] [address] HBSAB REACTIVE Nonreactive Feb 01, 2025 11:32 AM [facility] HEPATITIS A IGG SERUM Specime n Type: [...] Feb 01, 2025 11:12 AM Reporting Lab: [place] [id number] Performing Lab: [place] [id number] HEPATITIS A IGG REACTIVE Nonreactive Feb 01, 2025 11:32 AM [facility] CBC/PLT BLOOD Specimen Type: BLOOD No comment entered. Ordering Provider: MICKY TRUONG Report Released Date/Time: Feb 01, 2025 11:12 AM Reporting Lab: [address] [address] Performing Lab: [address] [address] WBC 5.4 10*3/uL 5.0-10.0 RBC 5.32 10*6/uL 4.6-6.2 HGB 16.3 g/dL 14.0-18.0 HCT 46.6 42.0-52.0 MCV 87.6 fL 80.0-94.0 MCH 30.6 pg 27.0-31.0 MCHC 35.0 g/dL 32.0-36.0 PLT 213 10*3/uL 150-450 MPV 11.0 fL 9.0-13.1 RDW 11.9 11.0-16.0 NRBC 0.0 0.0-0.0 Feb 01, 2025 11:32 AM [facility] PANEL 5 PLASMA Specimen Type: PLASMA Comment: [...] Feb 01, 2025 11:12 AM Reporting Lab: [address] [address] Performing Lab: [address] [address] CREATININE 1.43 mg/dL H 0.72-1.25 UREA NITROGEN [...] (CKD-EPI) 61 Feb 01, 2025 11:32 AM [facility] LIPID PROFILE PLASMA Specimen Type: PLASMA Comment: [...] Feb 01, 2025 11:12 AM Reporting Lab: [address] [address] Performing Lab: [address] [address] CHOLESTEROL 225 mg/dL H 0-199 TRIGLYCERIDE 108 mg/dL 0-149 HDL CHOLESTEROL 61 mg/dL 40-69 DIRECT LDL CHOL. 169 mg/dL H 0-100 Feb 01, 2025 11:32 AM [facility] GLYCOHEMOGLOBIN BLOOD Specimen Type: BLOOD Comment: Prediabetes: 5.7%-6.4% Diabetes: >= 6.5% [facility] guidelines for A1c interpretation: Glycemic control targets are based on Shared Decision Making between clinicians and patients. Criteria used to establish an A1c target recommendation can be found at https://www.la.gov/qualityandpatientsafety/ and include the use of result accuracy [...] 8.73 and 9.27. Ref: https://ngsp.org/CAPdata.asp. The in-house [employer] Focus-Keego D-100 analyzer has a historical CV <= 2%. Contact the laboratory for further performance characteristics of this assay. Ordering Provider: MICKY TRUONG Report Released Date/Time: Feb 01, 2025 11:12 AM Reporting Lab: [address] [address] Performing Lab: [address] [address] GLYCOHEMOGLOBIN 5.1 4.4-5.6 Feb 01, 2025 11:32 AM [facility] PSA S ARABELLA Specimen Type: SERUM No comment entered. Ordering Provider: MICKY TRUONG Report Released Date/Time: Feb 01, 2025 11:12 AM Reporting Lab: [place] [address] [facility] [address] Performing Lab: [facility] [address] [place] [id number] PSA 0.622 ng/mL 0-3.999 Feb 01, 2025 11:32 AM [facility] TSH PLASMA Specimen Type: PLASM A Comment: [...] Feb 01, 2025 11:12 AM Reporting Lab: [address] [address] Performing Lab: [address] [address] TSH 0.6714 m[IU]/mL 0.3500-4.9400 Feb 01, 2025 11:32 AM [facility] 25-OH VITAMIN D SERUM Specime n Type: [...] Feb 01, 2025 11:12 AM Reporting Lab: [address] [address] Performing Lab: [address] [address] 25-OH VITAMIN D 32.7 ng/mL 20.0-50.0 Vital Signs: All taken on the encounter date This section contains inpatient and outpatient Vital Signs collected on the date of the Encounter. Date/Time Temperature Pulse Blood Pressure Respiratory Rate SP02 Pain Height Weight Body Mass Index Source Feb 01, 2025 03:40 PM 97.6 F 70 /min 118/72 mm[Hg] 98 % 7 219 lb 30 [facility] Feb 01, 2025 11:14 AM 70 /min 118/72 mm[Hg] 12 /min [facility] Social History: Smoking Status (Most current) and Tobacco Use (All prior to encounter date) This section includes the most current, and the historical, smoking and tobacco- related health factors from the [place] facility where the Encounter took place. Current Smoking Status This section includes the most current smoking, or tobacco-related health factor, from the [place] facility where the Encounter took place. Date/Time Current Smoking Status Comment [facility] Feb 01, 2025 10:30 AM VA-TOBACCO USE FOR TOSHA CIGARETTES [facility] Tobacco Use History This section includes a history of the smoking, or tobacco-related health factors, that were collected on or before the date of the Encounter. The data comes from the [place] facility where the Encounter took place. Date/Time Smoking Status/Tobacco Use Comment F acility Feb 01, 2025 10:30 AM VA-TOBACCO USE FOR TOSHA CIGARETTES [facility] Sep 19, 2023 07:30 AM VA-TOBACCO FORMER USER [facility] Sep 19, 2023 07:30 AM VA-TOBACCO QUIT 5 TO < 15 YRS [facility] Oct 18, 2022 08:30 AM VA-TOBACCO FORMER USER [facility] Oct 18, 2022 08:30 AM VA-TOBACCO QUIT 15 YRS OR MORE [facility] Sep 04, 2021 09:47 AM VA-TOBACCO NEVER USED [facility] Oct 04, 2015 12:50 PM V9 LIFETIME NON-USER OF TOBACCO [facility] Aug 18, 2013 12:50 PM V9 QUIT TOBACCO >7 YEARS AGO [facility]
--- OUTSIDE RECORDS SUMMARY | 2025-03-24 11:49 | XMS_ITS | Continuity of Care Document ---
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 It does not include entries that were removed or entered in error. 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 Active Condition [facility] Bilateral stiffness of knee joints Active Condition [facility] Exposure to potentially hazardous substance ([facility] [id number]) Active Condition [facility] Family history of malignant neoplasm of colon over age [address] ([address] [id number]) Active Condition [facility] Fatty liver Active Condition [facility] Hypercholesterolemia ([facility] [id number]) Active Condition [facility] Irritability and anger Active Condition [facility] Low back pain Active Condition [facility] Obesity ([facility] [id number]) Active Condition [facility] Health Maintenance (ICD-9-CM V65.9) Inactive Condition 10/16/2021 [facility] Patient Overweight ([facility] [id number]) Inactive Condition 10/18/2022 [facility] Vitamin D Deficiency ([facility] [id number]) Inactive Condition 10/05/2023 [facility] Diagnosis: ICD-10-CM M54.50 Low back pain, unspecified Active Diagnosis [facility] Diagnosis: ICD-10-CM E78.00 Pure hypercholesterolemia, unspecified Active Diagnosis [facility] Diagnosis: ICD-10-CM F32.A Depression, unspecified Active Diagnosis [facility] Diagnosis: ICD-10-CM Z65.3 Problems related to other legal circumstances Active Diagnosis [facility] Diagnosis: ICD-10-CM Z12.11 Encounter for screening for malignant neoplasm of colon Active Diagnosis [place] [facility] Diagnosis: ICD-10-CM M54.40 Lumbago with sciatica, unspecified side Active Diagnosis [facility] Medications Combined list of outpatient medications from Department of Defense and Veterans Affairs facilities.Medications provided include 1) outpatient medications from the last 15 months, and 2) patient-reported medications. Medication Details Route Status Patient Instructions Prescription Expires Prescription Number Last Dispense Date Ordering Provider Order Date Order Qty Source DICLOFENAC NA 75MG TAB,EC TAKE ONE TABLET BY MOUTH TWICE A DAY NEEDED FOR PAIN/INF LAMMATIO N ORAL ACTIVE 02/02/2026 [id number] GAURANG TRUONG IN [facility] 2024 60 [place] [facility] [place]AR[place] 750MG TAB TAKE ONE TABLET BY MOUTH THREE TIMES A DAY NEEDED FOR MUSCLE SPASM ORAL ACTIVE 02/02/2026 [id number] GAURANG TRUONG IN [facility] 2024 90 [place] [facility] [id number]/EL ECTROLYTES PWDR TAKE COLONOSC OPY PREP BY MOUTH DIRECTED FOR BOWEL PREP -TAKE PER WRITTEN DIRECTIO NS PROVIDED BY GI OR GENERAL SURGERY CLINIC. WRITTEN INSTRUCT IONS FROM CLINIC WILL COME SEPARATE WITH YOUR APPOINTM ENT LETTER. DO NOT TAKE UNTIL YOU RECEIVE YOUR APPOINTM ENT DATE AND INSTRUCT IONS IN MAIL. ORAL 03/18/2024 [id number] CESAR,AND KARMEN M 2023 1 [place] Allergies, Adverse Reactions, Alerts Combined list of allergies from Department of Defense and Veterans Affairs facilities. It does not include entries that were removed or entered in error. Substance Category Reaction Severity Reaction type Status Date Reported Comments Source No Known Allergies Drug allergy (disorder) active 09/06/[address] [facility] [place] Immunizations Combined list of available immunizations from the Department of Defense and Veterans Affairs facilities. Immunization Series Date Given Administered By Site Reaction Lot Number CVX Code Drug [employer] Member Status Comments Source TDAP 2021 115 complet ed [place] [facility] INFLUENZA A & B (HISTORICAL) 2014 88 complet ed [place] [facility] anthrax vaccine 1 2013 Unknown, Provider [id number] [employer] Nannette (MIP) complet ed anthrax vaccine [employer] TD(ADULT) UNSPECIFIED FORMULATION 2009 139 complet ed [place] [facility] [place] TD(ADULT) UNSPECIFIED FORMULATION 2002 139 complet ed [place] [facility] Results Combined list of recent chemistry, hematology and other laboratory results from Department of Defense and Veterans Affairs, ranging from 15 months to all on record, depending upon the facility. Order Name Results Value Reference Range Date Interpretation Specimen Comments Source HBSAB HEPATITIS B VIRUS SURFACE AB [PRESENCE] IN SERUM BY IMMUNOASSA Y REACTIVE 02/01 Specimen Type: SERUM Comment: FOR HEPATITIS A IGG ANTIBODY Reactive HAV-IgG indicates previous Hepatitis A infection or immunity by vaccination . FOR HBSAB TESTING: Reactive HBsAb denotes immunity by vaccination or recovery from Hepatitis B infection. Individuals found to be reactive for both HBV Core AB total and HBsAb are immune due to prior natural infection. Individuals found to be nonreactive for HBV Core AB total and reactive for HBsAb (anti-HBs) are immune due to prior immunizatio n. Individuals found to be reactive for HBV Core AB total and nonreactive for HBsAb (anti-HBs) are considered to have a current Hepatitis B infection, either acute or chronic. Individuals found to be nonreactive for both HBV Core AB total and HBsAb are at risk for Hepatitis B infection (HBV) and HBV immunizatio n should be considered. Ordering Provider: MICKY TRUONG Report Released Date/Time: Feb 01, 2025 11:12 AM Reporting Lab: [facility] [address] [address] Performing Lab: [facility] [address] [address] [facility] HEPATITI S A IGG HEPATITIS A IGG REACTIVE 02/01 Specimen Type: SERUM Comment: FOR HEPATITIS A IGG ANTIBODY Reactive HAV-IgG indicates previous Hepatitis A infection or immunity by vaccination . FOR HBSAB TESTING: Reactive HBsAb denotes immunity by vaccination or recovery from Hepatitis B infection. Individuals found to be reactive for both HBV Core AB total and HBsAb are immune due to prior natural infection. Individuals found to be nonreactive for HBV Core AB total and reactive for HBsAb (anti-HBs) are immune due to prior immunizatio n. Individuals found to be reactive for HBV Core AB total and nonreactive for HBsAb (anti-HBs) are considered to have a current Hepatitis B infection, either acute or chronic. Individuals found to be nonreactive for both HBV Core AB total and HBsAb are at risk for Hepatitis B infection (HBV) and HBV immunizatio n should be considered. Ordering Provider: MICKY TRUONG Report Released Date/Time: Feb 01, 2025 11:12 AM Reporting Lab: [place] [phone] Performing Lab: [place] [phone] [facility] CBC/PLT LEUKOCYTES [#/VOLUME] IN BLOOD BY AUTOMATED COUNT 5.4 10*3/uL 5.0 - 10.0 02/01 Specimen Type: BLOOD No comment entered. Ordering Provider: MICKY TRUONG Report Released Date/Time: Feb 01, 2025 11:12 AM Reporting Lab: [address] [address] Performing Lab: [place] [id number] [place] [address] CBC/PLT ERYTHROCYT ES [#/VOLUME] IN BLOOD BY AUTOMATED COUNT 5.32 10*6/uL 4.6 - 6.2 02/01 Specimen Type: BLOOD No comment entered. Ordering Provider: MICKY TRUONG Report Released Date/Time: Feb 01, 2025 11:12 AM Reporting Lab: [address] [address] Performing Lab: [place] [phone] [facility] CBC/PLT HEMOGLOBIN [MASS/VOLU ME] IN BLOOD 16.3 g/dL 14.0 - 18.0 02/01 Specimen Type: BLOOD No comment entered. Ordering Provider: MICKY TRUONG Report Released Date/Time: Feb 01, 2025 11:12 AM Reporting Lab: [address] [address] Performing Lab: [place] [phone] [facility] CBC/PLT HEMATOCRIT [VOLUME FRACTION] OF BLOOD BY AUTOMATED COUNT 46.6 42.0 - 52.0 02/01 Specimen Type: BLOOD No comment entered. Ordering Provider: MICKY TRUONG Report Released Date/Time: Feb 01, 2025 11:12 AM Reporting Lab: [place] [phone] Performing Lab: [place] [phone] [facility] CBC/PLT MCV [ENTITIC VOLUME] BY AUTOMATED COUNT 87.6 fL 80.0 - 94.0 02/01 Specimen Type: BLOOD No comment entered. Ordering Provider: MICKY TRUONG Report Released Date/Time: Feb 01, 2025 11:12 AM Reporting Lab: [address] [address] Performing Lab: [place] [phone] [facility] CBC/PLT MCH [ENTITIC MASS] BY AUTOMATED COUNT 30.6 pg 27.0 - 31.0 02/01 Specimen Type: BLOOD No comment entered. Ordering Provider: MICKY TRUONG Report Released Date/Time: Feb 01, 2025 11:12 AM Reporting Lab: [address] [address] Performing Lab: [place] [phone] [facility] CBC/PLT MCHC [MASS/VOLU ME] BY AUTOMATED COUNT 35.0 g/dL 32.0 - 36.0 02/01 Specimen Type: BLOOD No comment entered. Ordering Provider: MICKY TRUONG Report Released Date/Time: Feb 01, 2025 11:12 AM Reporting Lab: [address] [address] Performing Lab: [address] [address] [facility] CBC/PLT PLATELETS [#/VOLUME] IN BLOOD 213 10*3/uL 150 - 450 02/01 Specimen Type: BLOOD No comment entered. Ordering Provider: MICKY TRUONG Report Released Date/Time: Feb 01, 2025 11:12 AM Reporting Lab: [place] [phone] Performing Lab: [address] CBC/PLT PLATELET MEAN VOLUME [ENTITIC VOLUME] IN BLOOD 11.0 fL 9.0 - 13.1 02/01 Specimen Type: BLOOD No comment entered. Ordering Provider: MICKY TRUONG Report Released Date/Time: Feb 01, 2025 11:12 AM Reporting Lab: [place] [id number] Performing Lab: [address] CBC/PLT ERYTHROCYT E DISTRIBUTI ON WIDTH [ENTITIC VOLUME] BY AUTOMATED COUNT 11.9 11.0 - 16.0 02/01 Specimen Type: BLOOD No comment entered. Ordering Provider: MICKY TRUONG Report Released Date/Time: Feb 01, 2025 11:12 AM Reporting Lab: [place] [phone] Performing Lab: [address] CBC/PLT NUCLEATED ERYTHROCYT ES/100 ERYTHROCYT ES IN BLOOD 0.0 0.0 - 0.0 02/01 Specimen Type: BLOOD No comment entered. Ordering Provider: MICKY TRUONG Report Released Date/Time: Feb 01, 2025 11:12 AM Reporting Lab: [address] [address] Performing Lab: [place] [phone] [place] [address] PANEL 5 CREATININE [MASS/VOLU ME] IN SERUM OR PLASMA 1.43 mg/dL 0.72 - 1.25 02/01 H Specimen Type: PLASMA Comment: FOR HEPATITIS A IGG ANTIBODY Reactive HAV-IgG indicates previous Hepatitis A infection or immunity by vaccination . FOR HBSAB TESTING: Reactive HBsAb denotes immunity by vaccination or recovery from Hepatitis B infection. Individuals found to be reactive for both HBV Core AB total and HBsAb are immune due to prior natural infection. Individuals found to be nonreactive for HBV Core AB total and reactive for HBsAb (anti-HBs) are immune due to prior immunizatio n. Individuals found to be reactive for HBV Core AB total and nonreactive for HBsAb (anti-HBs) are considered to have a current Hepatitis B infection, either acute or chronic. Individuals found to be nonreactive for both HBV Core AB total and HBsAb are at risk for Hepatitis B infection (HBV) and HBV immunizatio n should be considered. Ordering Provider: MICKY TRUONG Report Released Date/Time: Feb 01, 2025 11:12 AM Reporting Lab: [address] [address] Performing Lab: [address] [address] [facility] 5 UREA NITROGEN [MASS/VOLU ME] IN SERUM OR PLASMA 21 mg/dL - 02/01 Specimen Type: PLASMA Comment: FOR HEPATITIS A IGG ANTIBODY Reactive HAV-IgG indicates previous Hepatitis A infection or immunity by vaccination . FOR HBSAB TESTING: Reactive HBsAb denotes immunity by vaccination or recovery from Hepatitis B infection. Individuals found to be reactive for both HBV Core AB total and HBsAb are immune due to prior natural infection. Individuals found to be nonreactive for HBV Core AB total and reactive for HBsAb (anti-HBs) are immune due to prior immunizatio n. Individuals found to be reactive for HBV Core AB total and nonreactive for HBsAb (anti-HBs) are considered to have a current Hepatitis B infection, either acute or chronic. Individuals found to be nonreactive for both HBV Core AB total and HBsAb are at risk for Hepatitis B infection (HBV) and HBV immunizatio n should be considered. Ordering Provider: MICKY TRUONG Report Released Date/Time: Feb 01, 2025 11:12 AM Reporting Lab: [address] [address] Performing Lab: [address] [address] [facility] PANEL 5 GLUCOSE [MASS/VOLU ME] IN SERUM OR PLASMA 94 mg/dL 74 - 100 02/01 Specimen Type: PLASMA Comment: FOR HEPATITIS A IGG ANTIBODY Reactive HAV-IgG indicates previous Hepatitis A infection or immunity by vaccination . FOR HBSAB TESTING: Reactive HBsAb denotes immunity by vaccination or recovery from Hepatitis B infection. Individuals found to be reactive for both HBV Core AB total and HBsAb are immune due to prior natural infection. Individuals found to be nonreactive for HBV Core AB total and reactive for HBsAb (anti-HBs) are immune due to prior immunizatio n. Individuals found to be reactive for HBV Core AB total and nonreactive for HBsAb (anti-HBs) are considered to have a current Hepatitis B infection, either acute or chronic. Individuals found to be nonreactive for both HBV Core AB total and HBsAb are at risk for Hepatitis B infection (HBV) and HBV immunizatio n should be considered. Ordering Provider: MICKY TRUONG Report Released Date/Time: Feb 01, 2025 11:12 AM Reporting Lab: [facility] [place] [phone] Performing Lab: [facility] [address] [address] [facility] PANEL 5 SODIUM [MOLES/VOL UME] IN SERUM OR PLASMA 136 mmol/L 136 - 145 02/01 Specimen Type: PLASMA Comment: FOR HEPATITIS A IGG ANTIBODY Reactive HAV-IgG indicates previous Hepatitis A infection or immunity by vaccination . FOR HBSAB TESTING: Reactive HBsAb denotes immunity by vaccination or recovery from Hepatitis B infection. Individuals found to be reactive for both HBV Core AB total and HBsAb are immune due to prior natural infection. Individuals found to be nonreactive for HBV Core AB total and reactive for HBsAb (anti-HBs) are immune due to prior immunizatio n. Individuals found to be reactive for HBV Core AB total and nonreactive for HBsAb (anti-HBs) are considered to have a current Hepatitis B infection, either acute or chronic. Individuals found to be nonreactive for both HBV Core AB total and HBsAb are at risk for Hepatitis B infection (HBV) and HBV immunizatio n should be considered. Ordering Provider: MICKY TRUONG Report Released Date/Time: Feb 01, 2025 11:12 AM Reporting Lab: [address] [address] Performing Lab: [address] [address] [facility] PANEL 5 POTASSIUM [MOLES/VOL UME] IN SERUM OR PLASMA 4.0 mmol/L 3.5 - 5.1 02/01 Specimen Type: PLASMA Comment: FOR HEPATITIS A IGG ANTIBODY Reactive HAV-IgG indicates previous Hepatitis A infection or immunity by vaccination . FOR HBSAB TESTING: Reactive HBsAb denotes immunity by vaccination or recovery from Hepatitis B infection. Individuals found to be reactive for both HBV Core AB total and HBsAb are immune due to prior natural infection. Individuals found to be nonreactive for HBV Core AB total and reactive for HBsAb (anti-HBs) are immune due to prior immunizatio n. Individuals found to be reactive for HBV Core AB total and nonreactive for HBsAb (anti-HBs) are considered to have a current Hepatitis B infection, either acute or chronic. Individuals found to be nonreactive for both HBV Core AB total and HBsAb are at risk for Hepatitis B infection (HBV) and HBV immunizatio n should be considered. Ordering Provider: MICKY TRUONG Report Released Date/Time: Feb 01, 2025 11:12 AM Reporting Lab: [address] [address] Performing Lab: [address] [address] [facility] PANEL 5 CHLORIDE [MOLES/VOL UME] IN SERUM OR PLASMA 102 mmol/L 98 - 107 02/01 Specimen Type: PLASMA Comment: FOR HEPATITIS A IGG ANTIBODY Reactive HAV-IgG indicates previous Hepatitis A infection or immunity by vaccination . FOR HBSAB TESTING: Reactive HBsAb denotes immunity by vaccination or recovery from Hepatitis B infection. Individuals found to be reactive for both HBV Core AB total and HBsAb are immune due to prior natural infection. Individuals found to be nonreactive for HBV Core AB total and reactive for HBsAb (anti-HBs) are immune due to prior immunizatio n. Individuals found to be reactive for HBV Core AB total and nonreactive for HBsAb (anti-HBs) are considered to have a current Hepatitis B infection, either acute or chronic. Individuals found to be nonreactive for both HBV Core AB total and HBsAb are at risk for Hepatitis B infection (HBV) and HBV immunizatio n should be considered. Ordering Provider: MICKY TRUONG Report Released Date/Time: Feb 01, 2025 11:12 AM Reporting Lab: [place] [address] [address] Performing Lab: [address] [phone] [place] [address] PANEL 5 CARBON DIOXIDE, TOTAL [MOLES/VOL UME] IN SERUM OR PLASMA 24 mmol/L 22 - 02/01 Specimen Type: PLASMA Comment: FOR HEPATITIS A IGG ANTIBODY Reactive HAV-IgG indicates previous Hepatitis A infection or immunity by vaccination . FOR HBSAB TESTING: Reactive HBsAb denotes immunity by vaccination or recovery from Hepatitis B infection. Individuals found to be reactive for both HBV Core AB total and HBsAb are immune due to prior natural infection. Individuals found to be nonreactive for HBV Core AB total and reactive for HBsAb (anti-HBs) are immune due to prior immunizatio n. Individuals found to be reactive for HBV Core AB total and nonreactive for HBsAb (anti-HBs) are considered to have a current Hepatitis B infection, either acute or chronic. Individuals found to be nonreactive for both HBV Core AB total and HBsAb are at risk for Hepatitis B infection (HBV) and HBV immunizatio n should be considered. Ordering Provider: MICKY TRUONG Report Released Date/Time: Feb 01, 2025 11:12 AM Reporting Lab: [place] [address] [address] Performing Lab: [place] [phone] [place] [address] PANEL 5 CALCIUM [MASS/VOLU ME] IN SERUM OR PLASMA 9.4 mg/dL 8.4 - 10.2 02/01 Specimen Type: PLASMA Comment: FOR HEPATITIS A IGG ANTIBODY Reactive HAV-IgG indicates previous Hepatitis A infection or immunity by vaccination . FOR HBSAB TESTING: Reactive HBsAb denotes immunity by vaccination or recovery from Hepatitis B infection. Individuals found to be reactive for both HBV Core AB total and HBsAb are immune due to prior natural infection. Individuals found to be nonreactive for HBV Core AB total and reactive for HBsAb (anti-HBs) are immune due to prior immunizatio n. Individuals found to be reactive for HBV Core AB total and nonreactive for HBsAb (anti-HBs) are considered to have a current Hepatitis B infection, either acute or chronic. Individuals found to be nonreactive for both HBV Core AB total and HBsAb are at risk for Hepatitis B infection (HBV) and HBV immunizatio n should be considered. Ordering Provider: MICKY TRUONG Report Released Date/Time: Feb 01, 2025 11:12 AM Reporting Lab: [address] [address] Performing Lab: [address] [address] [facility] PANEL 5 PROTEIN [MASS/VOLU ME] IN SERUM OR PLASMA 7.8 g/dL 6.4 - 8.3 02/01 Specimen Type: PLASMA Comment: FOR HEPATITIS A IGG ANTIBODY Reactive HAV-IgG indicates previous Hepatitis A infection or immunity by vaccination . FOR HBSAB TESTING: Reactive HBsAb denotes immunity by vaccination or recovery from Hepatitis B infection. Individuals found to be reactive for both HBV Core AB total and HBsAb are immune due to prior natural infection. Individuals found to be nonreactive for HBV Core AB total and reactive for HBsAb (anti-HBs) are immune due to prior immunizatio n. Individuals found to be reactive for HBV Core AB total and nonreactive for HBsAb (anti-HBs) are considered to have a current Hepatitis B infection, either acute or chronic. Individuals found to be nonreactive for both HBV Core AB total and HBsAb are at risk for Hepatitis B infection (HBV) and HBV immunizatio n should be considered. Ordering Provider: MICKY TRUONG Report Released Date/Time: Feb 01, 2025 11:12 AM Reporting Lab: [address] [address] Performing Lab: [address] [address] [facility] PANEL 5 ALBUMIN [MASS/VOLU ME] IN SERUM OR PLASMA 4.6 g/dL 3.5 - 5.2 02/01 Specimen Type: PLASMA Comment: FOR HEPATITIS A IGG ANTIBODY Reactive HAV-IgG indicates previous Hepatitis A infection or immunity by vaccination . FOR HBSAB TESTING: Reactive HBsAb denotes immunity by vaccination or recovery from Hepatitis B infection. Individuals found to be reactive for both HBV Core AB total and HBsAb are immune due to prior natural infection. Individuals found to be nonreactive for HBV Core AB total and reactive for HBsAb (anti-HBs) are immune due to prior immunizatio n. Individuals found to be reactive for HBV Core AB total and nonreactive for HBsAb (anti-HBs) are considered to have a current Hepatitis B infection, either acute or chronic. Individuals found to be nonreactive for both HBV Core AB total and HBsAb are at risk for Hepatitis B infection (HBV) and HBV immunizatio n should be considered. Ordering Provider: MICKY TRUONG Report Released Date/Time: Feb 01, 2025 11:12 AM Reporting Lab: [address] [address] Performing Lab: [address] [address] [facility] PANEL 5 BILIRUBIN. TOTAL [MASS/VOLU ME] IN SERUM OR PLASMA 0.6 mg/dL 0.2 - 1.2 02/01 Specimen Type: PLASMA Comment: FOR HEPATITIS A IGG ANTIBODY Reactive HAV-IgG indicates previous Hepatitis A infection or immunity by vaccination . FOR HBSAB TESTING: Reactive HBsAb denotes immunity by vaccination or recovery from Hepatitis B infection. Individuals found to be reactive for both HBV Core AB total and HBsAb are immune due to prior natural infection. Individuals found to be nonreactive for HBV Core AB total and reactive for HBsAb (anti-HBs) are immune due to prior immunizatio n. Individuals found to be reactive for HBV Core AB total and nonreactive for HBsAb (anti-HBs) are considered to have a current Hepatitis B infection, either acute or chronic. Individuals found to be nonreactive for both HBV Core AB total and HBsAb are at risk for Hepatitis B infection (HBV) and HBV immunizatio n should be considered. Ordering Provider: MICKY TRUONG Report Released Date/Time: Feb 01, 2025 11:12 AM Reporting Lab: [address] [address] Performing Lab: [address] [address] [facility] PANEL 5 ASPARTATE AMINOTRANS FERASE [ENZYMATIC ACTIVITY/V OLUME] IN SERUM OR PLASMA 20 U/L 5 - 34 02/01 Specimen Type: PLASMA Comment: FOR HEPATITIS A IGG ANTIBODY Reactive HAV-IgG indicates previous Hepatitis A infection or immunity by vaccination . FOR HBSAB TESTING: Reactive HBsAb denotes immunity by vaccination or recovery from Hepatitis B infection. Individuals found to be reactive for both HBV Core AB total and HBsAb are immune due to prior natural infection. Individuals found to be nonreactive for HBV Core AB total and reactive for HBsAb (anti-HBs) are immune due to prior immunizatio n. Individuals found to be reactive for HBV Core AB total and nonreactive for HBsAb (anti-HBs) are considered to have a current Hepatitis B infection, either acute or chronic. Individuals found to be nonreactive for both HBV Core AB total and HBsAb are at risk for Hepatitis B infection (HBV) and HBV immunizatio n should be considered. Ordering Provider: MICKY TRUONG Report Released Date/Time: Feb 01, 2025 11:12 AM Reporting Lab: [place] [address] [address] Performing Lab: [place] [facility] [address] [address] [address] [facility] PANEL 5 ALANINE AMINOTRANS FERASE [ENZYMATIC ACTIVITY/V OLUME] IN SERUM OR PLASMA 32 U/L 0 - 55 02/01 Specimen Type: PLASMA Comment: FOR HEPATITIS A IGG ANTIBODY Reactive HAV-IgG indicates previous Hepatitis A infection or immunity by vaccination . FOR HBSAB TESTING: Reactive HBsAb denotes immunity by vaccination or recovery from Hepatitis B infection. Individuals found to be reactive for both HBV Core AB total and HBsAb are immune due to prior natural infection. Individuals found to be nonreactive for HBV Core AB total and reactive for HBsAb (anti-HBs) are immune due to prior immunizatio n. Individuals found to be reactive for HBV Core AB total and nonreactive for HBsAb (anti-HBs) are considered to have a current Hepatitis B infection, either acute or chronic. Individuals found to be nonreactive for both HBV Core AB total and HBsAb are at risk for Hepatitis B infection (HBV) and HBV immunizatio n should be considered. Ordering Provider: MICKY TRUONG Report Released Date/Time: Feb 01, 2025 11:12 AM Reporting Lab: [address] [address] Performing Lab: [address] [id number] [place] [address] PANEL 5 ANION GAP 3 IN SERUM OR PLASMA 10 meq/L 3 - 19 02/01 Specimen Type: PLASMA Comment: FOR HEPATITIS A IGG ANTIBODY Reactive HAV-IgG indicates previous Hepatitis A infection or immunity by vaccination . FOR HBSAB TESTING: Reactive HBsAb denotes immunity by vaccination or recovery from Hepatitis B infection. Individuals found to be reactive for both HBV Core AB total and HBsAb are immune due to prior natural infection. Individuals found to be nonreactive for HBV Core AB total and reactive for HBsAb (anti-HBs) are immune due to prior immunizatio n. Individuals found to be reactive for HBV Core AB total and nonreactive for HBsAb (anti-HBs) are considered to have a current Hepatitis B infection, either acute or chronic. Individuals found to be nonreactive for both HBV Core AB total and HBsAb are at risk for Hepatitis B infection (HBV) and HBV immunizatio n should be considered. Ordering Provider: MICKY TRUONG Report Released Date/Time: Feb 01, 2025 11:12 AM Reporting Lab: [address] [address] Performing Lab: [address] [address] [facility] PANEL 5 ALKALINE PHOSPHATAS E [ENZYMATIC ACTIVITY/V OLUME] IN SERUM OR PLASMA 66 U/L 40 - 150 02/01 Specimen Type: PLASMA Comment: FOR HEPATITIS A IGG ANTIBODY Reactive HAV-IgG indicates previous Hepatitis A infection or immunity by vaccination . FOR HBSAB TESTING: Reactive HBsAb denotes immunity by vaccination or recovery from Hepatitis B infection. Individuals found to be reactive for both HBV Core AB total and HBsAb are immune due to prior natural infection. Individuals found to be nonreactive for HBV Core AB total and reactive for HBsAb (anti-HBs) are immune due to prior immunizatio n. Individuals found to be reactive for HBV Core AB total and nonreactive for HBsAb (anti-HBs) are considered to have a current Hepatitis B infection, either acute or chronic. Individuals found to be nonreactive for both HBV Core AB total and HBsAb are at risk for Hepatitis B infection (HBV) and HBV immunizatio n should be considered. Ordering Provider: MICKY TRUONG Report Released Date/Time: Feb 01, 2025 11:12 AM Reporting Lab: [address] [address] Performing Lab: [address] [address] [facility] PANEL 5 GLOMERULAR FILTRATION RATE/1.73 SQ M.PREDICTE D [VOLUME RATE/AREA] IN SERUM, PLASMA OR BLOOD BY CREATININE -BASED FORMULA (CKD-EPI 2020) 61 02/01 Specimen Type: PLASMA Comment: FOR HEPATITIS A IGG ANTIBODY Reactive HAV-IgG indicates previous Hepatitis A infection or immunity by vaccination . FOR HBSAB TESTING: Reactive HBsAb denotes immunity by vaccination or recovery from Hepatitis B infection. Individuals found to be reactive for both HBV Core AB total and HBsAb are immune due to prior natural infection. Individuals found to be nonreactive for HBV Core AB total and reactive for HBsAb (anti-HBs) are immune due to prior immunizatio n. Individuals found to be reactive for HBV Core AB total and nonreactive for HBsAb (anti-HBs) are considered to have a current Hepatitis B infection, either acute or chronic. Individuals found to be nonreactive for both HBV Core AB total and HBsAb are at risk for Hepatitis B infection (HBV) and HBV immunizatio n should be considered. Ordering Provider: MICKY TRUONG Report Released Date/Time: Feb 01, 2025 11:12 AM Reporting Lab: [facility] [address] [address] Performing Lab: [address] [address] [facility] LIPID PROFILE CHOLESTERO L [MASS/VOLU ME] IN SERUM OR PLASMA 225 mg/dL 0 - 199 02/01 H Specimen Type: PLASMA Comment: FOR HEPATITIS A IGG ANTIBODY Reactive HAV-IgG indicates previous Hepatitis A infection or immunity by vaccination . FOR HBSAB TESTING: Reactive HBsAb denotes immunity by vaccination or recovery from Hepatitis B infection. Individuals found to be reactive for both HBV Core AB total and HBsAb are immune due to prior natural infection. Individuals found to be nonreactive for HBV Core AB total and reactive for HBsAb (anti-HBs) are immune due to prior immunizatio n. Individuals found to be reactive for HBV Core AB total and nonreactive for HBsAb (anti-HBs) are considered to have a current Hepatitis B infection, either acute or chronic. Individuals found to be nonreactive for both HBV Core AB total and HBsAb are at risk for Hepatitis B infection (HBV) and HBV immunizatio n should be considered. Ordering Provider: MICKY TRUONG Report Released Date/Time: Feb 01, 2025 11:12 AM Reporting Lab: [address] [address] Performing Lab: [address] [address] [facility] LIPID PROFILE TRIGLYCERI DE [MASS/VOLU ME] IN SERUM OR PLASMA 108 mg/dL 0 - 149 02/01 Specimen Type: PLASMA Comment: FOR HEPATITIS A IGG ANTIBODY Reactive HAV-IgG indicates previous Hepatitis A infection or immunity by vaccination . FOR HBSAB TESTING: Reactive HBsAb denotes immunity by vaccination or recovery from Hepatitis B infection. Individuals found to be reactive for both HBV Core AB total and HBsAb are immune due to prior natural infection. Individuals found to be nonreactive for HBV Core AB total and reactive for HBsAb (anti-HBs) are immune due to prior immunizatio n. Individuals found to be reactive for HBV Core AB total and nonreactive for HBsAb (anti-HBs) are considered to have a current Hepatitis B infection, either acute or chronic. Individuals found to be nonreactive for both HBV Core AB total and HBsAb are at risk for Hepatitis B infection (HBV) and HBV immunizatio n should be considered. Ordering Provider: MICKY TRUONG Report Released Date/Time: Feb 01, 2025 11:12 AM Reporting Lab: [address] [address] Performing Lab: [address] [address] [facility] LIPID PROFILE CHOLESTERO L IN HDL [MASS/VOLU ME] IN SERUM OR PLASMA 61 mg/dL 40 - 69 02/01 Specimen Type: PLASMA Comment: FOR HEPATITIS A IGG ANTIBODY Reactive HAV-IgG indicates previous Hepatitis A infection or immunity by vaccination . FOR HBSAB TESTING: Reactive HBsAb denotes immunity by vaccination or recovery from Hepatitis B infection. Individuals found to be reactive for both HBV Core AB total and HBsAb are immune due to prior natural infection. Individuals found to be nonreactive for HBV Core AB total and reactive for HBsAb (anti-HBs) are immune due to prior immunizatio n. Individuals found to be reactive for HBV Core AB total and nonreactive for HBsAb (anti-HBs) are considered to have a current Hepatitis B infection, either acute or chronic. Individuals found to be nonreactive for both HBV Core AB total and HBsAb are at risk for Hepatitis B infection (HBV) and HBV immunizatio n should be considered. Ordering Provider: MICKY TRUONG Report Released Date/Time: Feb 01, 2025 11:12 AM Reporting Lab: [facility] [address] [address] Performing Lab: [facility] [address] [address] [facility] LIPID PROFILE CHOLESTERO L IN LDL [MASS/VOLU ME] IN SERUM OR PLASMA BY DIRECT ASSAY 169 mg/dL 0 - 100 02/01 H Specimen Type: PLASMA Comment: FOR HEPATITIS A IGG ANTIBODY Reactive HAV-IgG indicates previous Hepatitis A infection or immunity by vaccination . FOR HBSAB TESTING: Reactive HBsAb denotes immunity by vaccination or recovery from Hepatitis B infection. Individuals found to be reactive for both HBV Core AB total and HBsAb are immune due to prior natural infection. Individuals found to be nonreactive for HBV Core AB total and reactive for HBsAb (anti-HBs) are immune due to prior immunizatio n. Individuals found to be reactive for HBV Core AB total and nonreactive for HBsAb (anti-HBs) are considered to have a current Hepatitis B infection, either acute or chronic. Individuals found to be nonreactive for both HBV Core AB total and HBsAb are at risk for Hepatitis B infection (HBV) and HBV immunizatio n should be considered. Ordering Provider: MICKY TRUONG Report Released Date/Time: Feb 01, 2025 11:12 AM Reporting Lab: [facility] [address] [address] Performing Lab: [facility] [address] [address] [facility] GLYCOHEM OGLOBIN HEMOGLOBIN A1C/HEMOGL OBIN.TOTAL IN BLOOD BY HPLC 5.1 4.4 - 5.6 02/01 Specimen Type: BLOOD Comment: Prediabetes : 5.7%-6.4% Diabetes: >= 6.5% [facility] guidelines for A1c interpretat ion: Glycemic control targets are based on Shared Decision Making between clinicians and patients. Criteria used to establish an A1c target recommendat ion can be found at https://www .[place].gov/kianna lityandpati entsafety/ and include the use of result accuracy and precision(C V) of the A1c tests clinicians utilize at their own sites of practice. Values obtained from A1C measurement s can vary. For typical A1C assays, a reported value of 7.0 could actually be between 6.72 and 7.28 if measured by a reference method. A reported value of 9.0 could actually be between 8.73 and 9.27. Ref: https://ngs p.org/CAPda ta.asp. The in-house [employer] D-100 analyzer has a historical CV <= 2%. Contact the laboratory for further performance characteris tics of this assay. Ordering Provider: MICKY TRUONG Report Released Date/Time: Feb 01, 2025 11:12 AM Reporting Lab: [place] [id number] Performing Lab: [place] [id number] [facility] PSA PROSTATE SPECIFIC AG [MASS/VOLU ME] IN SERUM OR PLASMA 0.622 ng/mL 0 - 3.999 02/01 Specimen Type: SERUM No comment entered. Ordering Provider: MICKY TRUONG Report Released Date/Time: Feb 01, 2025 11:12 AM Reporting Lab: [address] [address] Performing Lab: [place] [id number] [facility] TSH THYROTROPI N [UNITS/VOL UME] IN SERUM OR PLASMA 0.6714 m[IU]/mL 0.3500 - 4.9400 02/01 Specimen Type: PLASMA Comment: Estimated Glomerular Filtration Rate (eGFR) calculated using the 2020 Chronic Kidney Disease-Epi demiology (CKD-EPI) Collaborati on creatinine equation; units of measure are mL/min/1.73 m2. Results are only valid for adults (>=18 years) whose serum creatinine is in a steady state. eGFR calculation s are not valid for patients with acute kidney injury and for patients on dialysis. Creatinine- based estimates of kidney function may also be inaccurate in patients with reduced creatinine generation due to decreased muscle mass (e.g., malnutritio n, severe hypoalbumin emia, sarcopenia, chronic neuromuscul ar disease, amputations , severe heart failure or liver disease) and in patients with increased creatinine generation due to increased muscle mass (e.g., muscle builders, anabolic steroids) or increased dietary intake. As drug clearance is proportiona l to total GFR and not GFR indexed to body surface area (BSA), in individuals with a BSA substantial ly different than 1.73 m2, drug dosing should be based on the reported eGFR value de-indexed from BSA by multiplying by the individual' s BSA and dividing by 1.73. CKD is diagnosed based on abnormaliti es of kidney structure or function, present for >3 months, with implication s for health and disease. CKD is classified and staged based on cause, eGFR and albuminuria (quantified as urine albumin to creatinine ratio). An eGFR >60 mL/min/1.73 m2 in the absence of increased urine albumin excretion or structural abnormaliti es does not represent CKD. eGFR CKD Interpretat ion (mL/min/1.7 3 m2) stage >=90 G1 Normal 60-89 G2 Mild decrease 45-59 G3A Mild to moderate decrease 30-44 G3B Moderate to severe decrease 15-29 G4 Severe decrease <15 G5 Kidney failure Ordering Provider: MICKY TRUONG Report Released Date/Time: Feb 01, 2025 11:12 AM Reporting Lab: [facility] [address] [address] Performing Lab: [facility] [address] [address] [facility] 25-OH VITAMIN D 25-HYDROXY VITAMIN D3 [MASS/VOLU ME] IN SERUM OR PLASMA 32.7 ng/mL 20.0 - 50.0 02/01 Specimen Type: SERUM Comment: The National Institutes of Health (NIH) recommendat ions state: <12 ng/mL - Deficient 20 - 50 ng/mL - Optimal Levels - adequate for most people. >50 ng/mL - Increased risk of hypercalciu darvin/other health problems - clinical correlation is required. These reference ranges represent clinical decision values rather than population- based reference values. Ordering Provider: MICKY TRUONG Report Released Date/Time: Feb 01, 2025 11:12 AM Reporting Lab: [facility] [address] [address] Performing Lab: [facility] [address] [address] [facility] EGFR + CREAT DATE SENSITIV E CREATININE [MASS/VOLU ME] IN SERUM OR PLASMA 1.36 mg/dL 0.72 - 1.25 06/01 H Specimen Type: PLASMA Comment: Estimated Glomerular Filtration Rate (eGFR) calculated using the 2020 Chronic Kidney Disease-Epi demiology (CKD-EPI) Collaborati on creatinine equation; units of measure are mL/min/1.73 m2. Results are only valid for adults (>=18 years) whose serum creatinine is in a steady state. eGFR calculation s are not valid for patients with acute kidney injury and for patients on dialysis. Creatinine- based estimates of kidney function may also be inaccurate in patients with reduced creatinine generation due to decreased muscle mass (e.g., malnutritio n, severe hypoalbumin emia, sarcopenia, chronic neuromuscul ar disease, amputations , severe heart failure or liver disease) and in patients with increased creatinine generation due to increased muscle mass (e.g., muscle builders, anabolic steroids) or increased dietary intake. As drug clearance is proportiona l to total GFR and not GFR indexed to body surface area (BSA), in individuals with a BSA substantial ly different than 1.73 m2, drug dosing should be based on the reported eGFR value de-indexed from BSA by multiplying by the individual' s BSA and dividing by 1.73. CKD is diagnosed based on abnormaliti es of kidney structure or function, present for >3 months, with implication s for health and disease. CKD is classified and staged based on cause, eGFR and albuminuria (quantified as urine albumin to creatinine ratio). An eGFR >60 mL/min/1.73 m2 in the absence of increased urine albumin excretion or structural abnormaliti es does not represent CKD. eGFR CKD Interpretat ion (mL/min/1.7 3 m2) stage >=90 G1 Normal 60-89 G2 Mild decrease 45-59 G3A Mild to moderate decrease 30-44 G3B Moderate to severe decrease 15-29 G4 Severe decrease <15 G5 Kidney failure Ordering Provider: SYDNEE LANIER RA Report Released Date/Time: Mar 03, 2024 09:58 PM Reporting Lab: [facility] [address] [address] Performing Lab: [facility] [address] [address] MARCEL BERGERON [facility] EGFR + CREAT DATE SENSITIV E GLOMERULAR FILTRATION RATE/1.73 SQ M.PREDICTE D [VOLUME RATE/AREA] IN SERUM, PLASMA OR BLOOD BY CREATININE -BASED FORMULA (CKD-EPI 2020) 65 06/01 Specimen Type: PLASMA Comment: Estimated Glomerular Filtration Rate (eGFR) calculated using the 2020 Chronic Kidney Disease-Epi demiology (CKD-EPI) Collaborati on creatinine equation; units of measure are mL/min/1.73 m2. Results are only valid for adults (>=18 years) whose serum creatinine is in a steady state. eGFR calculation s are not valid for patients with acute kidney injury and for patients on dialysis. Creatinine- based estimates of kidney function may also be inaccurate in patients with reduced creatinine generation due to decreased muscle mass (e.g., malnutritio n, severe hypoalbumin emia, sarcopenia, chronic neuromuscul ar disease, amputations , severe heart failure or liver disease) and in patients with increased creatinine generation due to increased muscle mass (e.g., muscle builders, anabolic steroids) or increased dietary intake. As drug clearance is proportiona l to total GFR and not GFR indexed to body surface area (BSA), in individuals with a BSA substantial ly different than 1.73 m2, drug dosing should be based on the reported eGFR value de-indexed from BSA by multiplying by the individual' s BSA and dividing by 1.73. CKD is diagnosed based on abnormaliti es of kidney structure or function, present for >3 months, with implication s for health and disease. CKD is classified and staged based on cause, eGFR and albuminuria (quantified as urine albumin to creatinine ratio). An eGFR >60 mL/min/1.73 m2 in the absence of increased urine albumin excretion or structural abnormaliti es does not represent CKD. eGFR CKD Interpretat ion (mL/min/1.7 3 m2) stage >=90 G1 Normal 60-89 G2 Mild decrease 45-59 G3A Mild to moderate decrease 30-44 G3B Moderate to severe decrease 15-29 G4 Severe decrease <15 G5 Kidney failure Ordering Provider: SYDNEE LANIER RA Report Released Date/Time: Mar 03, 2024 09:58 PM Reporting Lab: [facility] [address] [address] Performing Lab: [facility] [address] [address] [facility] Vital Signs Combined list of inpatient and outpatient Vital Signs from Department of Defense and Veterans Affairs, ranging from 12 months to all on record, depending upon the facility. Vital Sign Value Date Comments Source SYSTOLIC BLOOD PRESSURE 118 02/01/2025 11:14:48 [place] [facility] DIASTOLIC BLOOD PRESSURE 72 02/01/2025 11:14:48 MARC[facility] PULSE 70 02/01/2025 11:14:48 SAMSON JIANG [facility] 12 02/01/2025 11:14:48 DAVEVera KIMBLE [facility] WEIGHT 217.9 07/16/2024 14:00:43 LYNIN GTON [facility] BMI 30 kg/m2 07/16/2024 14:00:43 SAMSON JIANG [facility] Encounters Combined list of: 1) Encounters from Department of Veterans Affairs facilities going backup to the last 18 months, not all VA inpatient encounters are included; 2) Encounters from the Department of Defense facilities going backup to 280 months. Location Location Details Encounter Type Encounter Number Reason For Visit Attending Provider ADM Date DC Date Status Disposition Source Nelia BELL [place], [place] t) OUTPATIENT [id number] Notes Entered by: Kiel OTERO 23 Aug 2013 1110 ------- ------- ------- ------- -- PATIENT HERE FOR JARRET ARMENDARIZ. THANIA FERNANDO 08/23 Released w/o Limitations Nelia [place], [place]) Nelia EDI [place] Optometry ) OUTPATIENT [id number] Notes Entered by: LARA CROWE 23 Aug 2013 1447 ------- ------- ------- ------- -- civilli DERREK Henry 08/23 Released w/o Limitations Nelia ARABELLA [place], [place] Optomet [place]) Nelia ARABELLA [place], [place] Immunizat ions) OUTPATIENT [id number] Notes Entered by: JUSTINA BARRON 24 Aug 2013 0945 ------- ------- ------- ------- -- PATIENT HERE FOR JERONIMO BEST 08/24 Released w/o Limitations Nelia ARABELLA [place] Immun[place] Nelia ARABELLA [place] Hearing Conservat ion[place] OUTPATIENT [id number] Notes Entered by: Michael CARRERO 24 Aug 2013 1038 ------- ------- ------- ------- -- LUIS GURROLA 08/24 Released w/o Limitations [place] Hearing Conserv ation) [place](Hearin g Conservat [facility] OUTPATIENT [id number] Notes Entered by: Kanwal DURANT 06 Sep 2015 0849 ------- ------- ------- ------- -- Pre Employm ent Audio REE SANFORD 09/06 Released w/o Limitations [facility] [place]Hear ing Conserv ation-[facility] [facility]) [facility] [id number] Pre Employm ent HAGERSHOSHANA CARO 09/06 Released w/o Limitations [facility] [place] [id number] Notes Entered by: NICOLÁS KARIMI 12 Sep 2015 0802 ------- ------- ------- ------- -- CDL 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 [place] NICOLÁS Soria 09/12 Released w/o Limitations [facility] [place] Outpatient Encounter [id number] 10/06 [place] [facility] Outpatient Encounter [id number] 01/14 [place] Outpatient Encounter [id number] 02/05 [place] Outpatient Encounter [id number] 02/09 [place] [facility] OFFICE O/P EST MOD 30 MIN [id number] Diagnos is: ICD-10- CM M54.40 Lumbago with sciatic a, unspeci fied side JUAN TRUONG 02/09 [place] [facility] SELF-MGMT EDUC & TRAIN 1 [place] [id number] Diagnos is: ICD-10- CM M54.50 Low back pain, unspeci fied CHASITY WILLIS 02/09 [place] [facility] QNHP OL DIG ASSMT&MGMT 5-10 [id number] Diagnos is: ICD-10- CM Z12.11 Encount er for screeni ng for maligna nt neoplas m of colon PERLA STAPLES L 02/15 [place] Outpatient Encounter [id number] 02/16 [place] Outpatient Encounter [id number] 02/16 [place] Outpatient Encounter [id number] 03/10 [place] [facility] Outpatient Encounter [id number] TYSON ROCA 03/11 [place] [facility] Outpatient Encounter [id number] 03/11 [place] Outpatient Encounter [id number] 03/11 [place] [facility] Outpatient Encounter [id number] 03/12 [place] [facility] Outpatient Encounter [id number] 03/16 [place] Outpatient Encounter [id number] 05/06 [place] HC PRO PHONE CALL 5-10 MIN [id number] Diagnos is: ICD-10- CM Z65.3 Problem s related to other legal circums tances JO ANN GERMAN A 06/18 [place] [facility] Outpatient Encounter [id number] TYSON ROCA 06/18 [place] [facility] SUICIDE RISK ASSESSED [id number] Diagnos is: ICD-10- CM F32.A Depress ion, unspeci fied JO ANN GERMAN A 06/23 [place] [facility] Outpatient Encounter [id number] 06/25 [place] PSYCH DIAGNOSTIC EVALUATION [id number] Diagnos is: ICD-10- CM F32.A Depress ion, unspeci fied DIEGO CAMPUZANO 07/06 [place] [facility] Outpatient Encounter [id number] 07/07 [place] [facility] Outpatient Encounter [id number] 07/16 [place] [facility] [place] [id number] Diagnos is: ICD-10- CM E78.00 Pure hyperch olester olemia, unspeci fied MAYRA,YOKASTA NDA K 07/16 [place] [facility] OFF/OP EST MAY X REQ PHY/QHP [id number] Diagnos is: ICD-10- CM M54.50 Low back pain, unspeci fied ALEXANDER,AND KARMEN F 10/07 [place] [facility] Outpatient Encounter [id number] 12/14 [place] [facility] OFF/OP EST MAY X REQ PHY/QHP [id number] Diagnos is: ICD-10- CM M54.50 Low back pain, unspeci fied ALEXANDER,AND KARMEN F 01/26 [place] [facility] Outpatient Encounter [id number] 02/01 [place] [facility] Outpatient Encounter [id number] 02/01 [place] [facility] Outpatient Encounter [id number] 02/01 [place] [facility] OFFICE O/P EST MOD 30 MIN [id number] Diagnos is: ICD-10- CM M54.50 Low back pain, unspeci fied DIONNEJUAN 02/01 [place] [facility] Procedures Combined list of: 1) Procedures from Department of [facility] Affairs facilities going back up to thelast 18 months, not all [place] non-surgical procedures are included; 2) All procedures from the Department of Defense facilities. Procedure Procedure Type Code Date Perfomer Comments [facility] e PURE TONE AUDIOMETRY (THRESHOLD); AIR ONLY 09/06/19 16 [facility] PURE TONE AUDIOMETRY (THRESHOLD), AUTOMATED; AIR ONLY 09/06/19 16 [facility] ANTHRAX VACCINE, FOR SUBCUTANEOUS OR INTRAMUSCULAR USE 08/24/19 14 [facility] Audiogram (Screening) Audiogram (Screening) 88226 09/21/19 16 REE SAN[facility]ORD [facility] Threshold Audiogram (Pure Tone) Threshold Audiogram (Pure Tone) 52470 09/21/19 16 [facility] DoD Threshold Audiogram (Pure Tone) Threshold Audiogram (Pure Tone) 22085 09/06/19 16 SHOSHANA HAGER [facility] Visual Function Screening Visual Function Screening 47345 09/06/19 16 SHOSHANA HAGER [facility] Electrocardiogram Electrocardiogram 43166 09/06 16 SHOSHANA HAGER [facility] Immunization Administration One Vaccine Immunization Administration One Vaccine 34240 08/24/19 14 JERONIMO SANCHEZ [facility] Social History Combined list of available smoking, tobacco, and other social history from Department of Defense and Veterans Affairs facilities. Social History Type Response Date Comment [facility] e Tobacco smoking status [facility] VA-TOBACCO USE FORMER CIGARETTES 02/01/2025 [facility]/01[facility]2025 [facility] History of tobacco use [place]-TOBACCO FORMER USER 09/19/2023 [facility] History of tobacco use [place]-TOBACCO FORMER USER 10/18/2022 [facility]2021 [facility] History of tobacco use V9 LIFETIME NON-USER OF TOBACCO 10/04/2015 [facility] History of tobacco use V9 QUIT TOBACCO >7 YEARS AGO 08/18/2013 [facility] History of tobacco use HF V9 CURRENT NON-SMOKER 04/23/2004 quit x 1 year [facility] This section is an empty social history section. [facility]
--- NOTE | 2025-03-24 11:57 | XR_ITS ---
FINAL REPORT TECHNIQUE: Thoracic spine 3 views, lumbar spine 3 views CLINICAL HISTORY: MUSCLE SPASM, PAIN, OSTEOPOROSIS COMPARISON: None FINDINGS: THORACIC SPINE AP, lateral, and swimmer's views of the thoracic spine were obtained. There is no prior exam for comparison. There is no acute fracture or malalignment. Vertebral body height is preserved. Paraspinal soft tissues are within normal limits. IMPRESSION: No acute bony abnormality identified. LUMBAR SPINE: AP and lateral views of the lumbar spine were obtained. There is no prior exam for comparison. There is no acute fracture or malalignment. Vertebral body height is preserved. Disc space height is preserved. No acute paraspinal abnormality. IMPRESSION: No acute bony abnormality identified. Reviewed, Interpreted and Dictated by Sharyn Cespedes MD Transcribed by Maxine Christy Authenticated and [facility]
== END 2025-03-24 23:59 | disposition home or self-care (01) ==
LOC: RAD 11:49
PROVIDERS: Visit Provider Chiropractor
DX: M19.90 Unspecified osteoarthritis, unspecified site (principal); M62.830 Muscle spasm of back; M54.9 Dorsalgia, unspecified; M81.0 Age-related osteoporosis without current pathological fracture
CPT/HCPCS: 72083